=== PATIENT | female | born 1945 | race Caucasian/White ===

== ENCOUNTER 2017-03-21 13:36 | Emergency (ER) | payer MEDICARE, OTHER ==
[2017-03-21] MEDS ORDERED: ASPIRIN TABLET 325 MG TAB PO ONE (13:45)
[2017-03-21] MEDS ORDERED: NITROGLYCERIN 0.4 MG 25 EA TAB SL ONE (13:45)
--- NOTE | 2017-03-21 13:59 | ED.PDOC ---
History of Present Illness - General Chief Complaint: Chest Pain/PR Time Seen by Provider: 03/21/17 13:47 Source: patient Exam Limitations: no limitations - History of Present Illness Initial Comments: Patient presents with chest pain for 6 hours. It started infrasternal and then move to substernal. It is constant, non-radiating, no previous episodes, no associated sx. Sharp in nature. Patient has NIDDM and COPD and has chronic dyspnea which has not change. She had stent placement x one about 5 years ago but has never suffered an PR. Occasional bipedal edema. She thinks she has high cholesterol. Denies tobacco use. No modifying sx. She has a midabdominal hernia that she says is constantly painful but this has not change. No other complaints. Timing/Duration: 4-6 hours Severity: moderate Improving Factors: nothing Worsening Factors: nothing Associated Symptoms: denies symptoms Allergies/Adverse Reactions: Allergies Penicillins Allergy (Verified 05/01/15 20:48) Home Medications: Ambulatory Orders Carvedilol 3.125 mg PO BID 05/09/15 Furosemide 40 mg PO BID 05/09/15 Linaclotide [Linzess] 290 mcg PO PRN 05/09/15 Meloxicam 7.5 mg PO DAILY 05/09/15 Glipizide 10 mg PO BID 04/11/16 Isosorbide Mononitrate [Isosorbide Mononitrate ER] 30 mg PO DAILY 04/11/16 Review of Systems - Review of Systems Constitutional: States: no symptoms reported EENTM: States: no symptoms reported Respiratory: States: see HPI Cardiology: States: see HPI Gastrointestinal/Abdominal: States: see HPI Genitourinary: States: no symptoms reported Musculoskeletal: States: no symptoms reported Skin: States: no symptoms reported Neurological: States: no symptoms reported Endocrine: States: no symptoms reported Hematologic/Lymphatic: States: no symptoms reported Past Medical History (General) - Patient Medical History Hx Stroke: No Hx of COPD: Yes Hx Cardiac Disorders: Yes - CARDIAC STENT Hx Congestive Heart Failure: Yes Hx Hypertension: Yes Hx Thyroid Disease: Yes Hx Diabetes: Yes Hx Gastroesophageal Reflux: Yes Hx Cancer: No Hx Hepatitis C: No Hx MRSA: No - Vaccination History Hx Influenza Vaccination: Yes Hx Pneumococcal Vaccination: Yes - Social History Hx Tobacco Use: Yes Hx Chewing Tobacco Use: No Hx Alcohol Use: No Hx Substance Use: No Hx Substance Use Treatment: No Hx Depression: No Hx Physical Abuse: No Hx Emotional Abuse: No Hx Suspected Abuse: No - Female History Patient : No Family Medical History - Family History Father Living Status: Hx Family;Other: Cerebral aneurysm Physical Exam - Physical Exam General Appearance: Alert Ears, Nose, Throat: normal ENT inspection Neck: non-tender, full range of motion, supple Respiratory: other - distant breath sounds. Otherwise, CTAB. Cardiovascular/Chest: normal peripheral pulses, regular rate, rhythm Gastrointestinal/Abdominal: normal bowel sounds, other - TTP over midabdominal line just superior to the umbilicus. There is a palpable reducible hernia at this location. Back Exam: no CVA tenderness Extremity: normal range of motion, non-tender, normal inspection, no pedal edema Neurologic: no motor/sensory deficits Lymphatic: no adenopathy Progress - Progress Progress: 03/21/17 17:[address] changes nor T wave inversions. No new LBBB. Troponin's negative. Patient was kept for observation in the ED and her pain resolved. She was discharged symptom free. Laboratory Tests 03/21/17 14:00 WBC 12.7 H RBC 4.63 Hgb 12.3 Hct 38.0 MCV 82.1 MCH 26.6 L MCHC 32.3 L RDW 17.5 H Plt Count 256 MPV 8.5 Absolute Neuts (auto) 9.20 H Absolute Lymphs (auto) 2.50 Absolute Monos (auto) 0.50 Absolute Eos (auto) 0.40 Absolute Basos (auto) 0.10 Neutrophils % 72.7 Lymphocytes % 19.8 L Monocytes % 3.6 Eosinophils % 2.9 Basophils % 1.0 PT 12.6 H INR 1.120 PTT (SP) 39.5 H Sodium 139 Potassium 3.2 L Chloride 99 L Carbon Dioxide 32 H Anion Gap 11.2 L BUN 16 Creatinine 0.64 BUN/Creatinine Ratio 25.0 H Random Glucose 224 H Serum Osmolality 285.7 Calcium 9.0 Magnesium 1.7 L Total Bilirubin 0.5 Direct Bilirubin 0.2 Indirect Bilirubin 0.3 AST 41 ALT 21 Alkaline Phosphatase 67 Creatine Kinase 47 CK-MB (CK-2) 0.9 CK-MB (CK-2) % Not Reportable Troponin I < 0.02 B-Natriuretic Peptide 65.1 Serum Total Protein 7.0 Albumin 3.6 Departure - Departure Clinical Impression: Chest pain Disposition: Discharge to Home or Self Care Condition: Good Departure Forms: ED Discharge - Pt. Copy, Patient Portal Self Enrollment Diet: resume usual diet Activity: increase activity as tolerated Referrals: Cezar Villasenor MD [Primary Care Provider] - 1-2 Weeks Home Medications: Ambulatory Orders Carvedilol 3.125 mg PO BID 05/09/15 Furosemide 40 mg PO BID 05/09/15 Linaclotide [Linzess] 290 mcg PO PRN 05/09/15 Meloxicam 7.5 mg PO DAILY 05/09/15 Glipizide 10 mg PO BID 04/11/16 Isosorbide Mononitrate [Isosorbide Mononitrate ER] 30 mg PO DAILY 04/11/16 Additional Instructions: Follow up with your primary doctor within the next week.
--- NOTE | 2017-03-21 14:10 | RAD ---
EXAM DESCRIPTION: Chest,1 View CLINICAL HISTORY: 71 years Female, chest discomfort, SOB COMPARISON: 12/23/2014 IMPRESSION: The heart is at the upper limits of normal in size, without failure. Moderate calcific plaque in the aortic arch. There is no airspace consolidation, pleural effusion, or pneumothorax. No acute osseous abnormality. Electronically signed by: Lewis Baker MD 03/21/2017 2:09 PM CDT
[2017-03-21 14:11] VITALS: TEMP 98
[2017-03-21 18:09] VITALS: BP 128/53; O2SAT 92
== END 2017-03-21 18:00 | disposition home or self-care (01) ==
LOC: ER 13:36
DX: R07.9 Chest pain, unspecified (principal); I11.0 Hypertensive heart disease with heart failure; I50.9 Heart failure, unspecified; J44.9 Chronic obstructive pulmonary disease, unspecified; E07.9 Disorder of thyroid, unspecified; E11.9 Type 2 diabetes mellitus without complications; K21.9 Gastro-esophageal reflux disease without esophagitis; Z98.61 Coronary angioplasty status; Z88.0 Allergy status to penicillin; Z79.899 Other long term (current) drug therapy

== ENCOUNTER → 2017-10-16 | Outpatient (CLI) | payer MEDICARE, OTHER | END | disposition home or self-care (01) | LOC: GMAB 10:25 | PROVIDERS: ATTEND Family Medicine | DX: E03.9 Hypothyroidism, unspecified (principal) ==

== ENCOUNTER 2017-11-18 12:47 | Emergency (ER) | payer MEDICARE, OTHER ==
--- NOTE | 2017-11-18 13:04 | ED.PDOC ---
History of Present Illness - General Chief Complaint: Abdominal Pain Stated Complaint: BELLY PAIN Time Seen by Provider: 11/18/17 13:03 Information Source: patient Exam Limitations: no limitations - History of Present Illness Initial Comments: Lizzy Miles 72 y/o female stated that she had sharp abdominal pain since yesterday with 2 episodes of nausea vomiting.Stated had 2 ventral hernia repair and mesh was placed but failed to correct it.Also had history of bowel obstruction in the past.No diarrhea.No vomiting while in er. Abdominal Pain Onset Location: RUQ, RLQ Pain Radiation: no radiation Quality: sharpness Timing/Duration: 24 hours Improving Factors: nothing Worsening Factors: movement Associated Symptoms: nausea/vomiting, other - see hpi Review of Systems - Review of Systems Constitutional: States: no symptoms reported EENTM: States: no symptoms reported Respiratory: States: no symptoms reported Cardiology: States: no symptoms reported Gastrointestinal/Abdominal: States: see HPI Genitourinary: States: no symptoms reported Musculoskeletal: States: no symptoms reported Skin: States: no symptoms reported Neurological: States: no symptoms reported All other Systems: Reviewed and Negative, No Change from Baseline Past Medical History (General) - Patient Medical History Hx Stroke: No Hx of COPD: Yes Hx Cardiac Disorders: Yes Hx Congestive Heart Failure: Yes Hx Hypertension: Yes Hx Thyroid Disease: Yes Hx Diabetes: Yes Hx Gastroesophageal Reflux: Yes Hx Cancer: No Hx Hepatitis C: No Hx MRSA: No Surgical History: other - ventral hernia repair,hysterectomy,cardiac stents - Vaccination History Hx Tetanus, Diphtheria Vaccination: No Hx Influenza Vaccination: No Hx Pneumococcal Vaccination: No - Social History Hx Tobacco Use: No Hx Chewing Tobacco Use: No Hx Alcohol Use: No Hx Substance Use: No Hx Substance Use Treatment: No Hx Depression: No Feels Threatened In Home Enviroment: No Feels Threatened In a Relationship: No Hx Physical Abuse: No Hx Emotional Abuse: No Hx Suspected Abuse: No - Activities of Daily Living Grooming Ability: Independent Eating (Feeding) Ability: Independent Toileting Ability: Independent - Female History Patient is a Female of Child Bearing Age (10 -59 yrs old): No Patient : No - Triage Comment ED Triage Comment: PT IS HOLDING ABD AND POINTS EPIGASTRIC AREA FOR SOURCE OF PAIN Family Medical History - Family History Father Living Status: Hx Family Stroke: Yes - mom Hx Family Diabetes: Yes - mom Hx Family;Other: Cerebral aneurysm-dad Physical Exam - Physical Exam General Appearance: Alert, Anxious, No apparent distress Eyes, Ears, Nose, Throat Exam: normal ENT inspection Neck: non-tender, full range of motion, supple Respiratory: chest non-tender, lungs clear, normal breath sounds Cardiovascular/Chest: normal peripheral pulses, regular rate, rhythm, no murmur Peripheral Pulses: No deficit Gastrointestinal/Abdominal: normal bowel sounds, soft, tenderness - right side of abdomen with bulging and tenderness, other - bese Back Exam: normal inspection, no CVA tenderness Extremity: pedal edema - 1+ pedal edema Progress - Progress Progress: 11/18/17 13:38 Last Vital Signs Temp 97.8 F 11/18/17 12:54 Pulse 85 11/18/17 12:54 Resp 18 11/18/17 12:54 BP 172/84 11/18/17 12:54 Pulse Ox 94 L 11/18/17 12:54 11/18/17 13:39 She was placed in Trendelenburg position then herniated bowel gradually reduced and abdominal binder was placed.Had rlief of symptoms afterwards - Results/Orders Results/Orders: Laboratory Tests 11/18/17 11/18/17 13:23 13:23 WBC 12.2 H RBC 5.28 Hgb 13.8 Hct 43.0 MCV 81.4 MCH 26.1 L MCHC 32.0 L RDW 18.8 H Plt Count 281 MPV 8.1 Absolute Neuts (auto) 9.50 H Absolute Lymphs (auto) 2.00 Absolute Monos (auto) 0.40 Absolute Eos (auto) 0.20 Absolute Basos (auto) 0.10 Neutrophils % 78.1 H Lymphocytes % 16.3 L Monocytes % 3.3 Eosinophils % 1.6 Basophils % 0.7 Sodium 141 Potassium 3.8 Chloride 104 Carbon Dioxide 25 Anion Gap 15.8 BUN 16 Creatinine 0.85 BUN/Creatinine Ratio 18.8 Random Glucose 207 H Serum Osmolality 288.5 Calcium 8.9 Total Bilirubin 0.8 AST 33 ALT 21 Alkaline Phosphatase 69 Serum Total Protein 8.0 Albumin 3.9 Globulin 4.1 H Albumin/Globulin Ratio 1.0 L - EKG/XRAY/CT CT Ordered: Yes - abdomen-incarcerated ventral hernia Departure - Departure Clinical Impression: Recurrent ventral hernia with incarceration Time of Disposition: 14:44 Disposition: Discharge to Home or Self Care Condition: Fair Departure Forms: ED Discharge - Pt. Copy, Patient Portal Self Enrollment Instructions: Ventral Hernia, DI for Ventral Hernia Diet: other - smal frequent meals Referrals: Cezar Villasenor MD [Primary Care Provider] - 1-2 Weeks Home Medications: Ambulatory Orders Carvedilol 3.125 mg PO BID 05/09/15 Furosemide 40 mg PO BID 05/09/15 Linaclotide [Linzess] 290 mcg PO PRN 05/09/15 Meloxicam 7.5 mg PO DAILY 05/09/15 Glipizide 10 mg PO BID 04/11/16 Isosorbide Mononitrate [Isosorbide Mononitrate ER] 30 mg PO DAILY 04/11/16 Additional Instructions: Need to wear abdominal binder daily;Stool softener everyday
[2017-11-18 13:13] VITALS: TEMP 97.8
[2017-11-18 14:18] VITALS: O2SAT 95
--- NOTE | 2017-11-18 14:21 | CT ---
Procedure: CT ABDOMEN PELVIS WITHOUT IV CONTRAST Exam Date: 11/18/2017 1:21 PM COMBER TENDER Ordering Provider: Ever Archer Clinical Indication: pain/hernia r/o SBO Comparison: None TECHNIQUE: CT of the abdomen and pelvis WITHOUT intravenous contrast. The abdomen and pelvis were scanned utilizing a multidetector helical scanner from the diaphragm to the lesser trochanter. Coronal and sagittal reformations were obtained. This exam was performed according to our departmental dose-optimization program which includes automated exposure control, adjustment of the mA and/or kV according to patient size and/or use of iterative reconstruction technique. DISCUSSION: ABSENCE OF INTRAVENOUS CONTRAST DECREASES SENSITIVITY FOR DETECTION OF FOCAL LESIONS AND VASCULAR PATHOLOGY. LOWER THORAX: Normal. HEPATOBILIARY: There is evidence of cholelithiasis. The gallbladder is distended. No focal hepatic lesion. SPLEEN: No splenomegaly. PANCREAS: No focal masses or ductal dilatation. ADRENALS: No adrenal nodules. KIDNEYS/URETERS: No hydronephrosis, stones, or solid mass lesions. PELVIC ORGANS/BLADDER: Unremarkable. PERITONEUM / RETROPERITONEUM: No free air or fluid. LYMPH NODES: No lymphadenopathy. VESSELS: Vascular calcifications are seen in the abdominal aorta and iliac vessels. GI TRACT: Stomach and small bowel are unremarkable. There is extensive descending and sigmoid diverticulosis. No evidence of diverticulitis. BONES AND SOFT TISSUES: No acute abnormality. There is a ventral abdominal hernia with the hernia neck measuring approximately 4.9 cm. The hernia sac measures approximately 15.5 x 6.3 cm and contains numerous incarcerated loops of small bowel. There is no evidence of bowel obstruction. IMPRESSION: Cholelithiasis and slightly distended appearance of the gallbladder. Large ventral abdominal hernia containing numerous loops of incarcerated small bowel. No evidence of bowel obstruction. Colonic diverticulosis without diverticulitis. Electronically signed by: Marisol Henderson MD 11/18/2017 2:20 PM COMBER TENDER
[2017-11-18 15:04] VITALS: BP 105/59
== END 2017-11-18 15:00 | disposition home or self-care (01) ==
LOC: ER 12:47
DX: K43.2 Incisional hernia without obstruction or gangrene (principal); J44.9 Chronic obstructive pulmonary disease, unspecified; I11.0 Hypertensive heart disease with heart failure; I50.9 Heart failure, unspecified; E07.9 Disorder of thyroid, unspecified; E11.9 Type 2 diabetes mellitus without complications; K21.9 Gastro-esophageal reflux disease without esophagitis

== ENCOUNTER 2018-02-14 22:04 | Emergency (ER) | payer MEDICARE, OTHER ==
[2018-02-14] MEDS ORDERED: IPRATROPIUM/ALBUTEROL 3 ML VIAL NEB ONE (22:10)
[2018-02-14] MEDS: IPRATROPIUM/ALBUTEROL 3 ML VIAL NEB ONE (22:15)
[2018-02-14 22:44] VITALS: O2SAT 94
[2018-02-14] MEDS: HYDROcodone 5MG/APAP 325MG 1 EA TAB PO ONE (22:48)
[2018-02-14] MEDS: predniSONE 20 MG TAB PO ONE (22:48)
[2018-02-14] MEDS: KETOROLAC TROMETHAMINE INJ 30 MG/ML VIAL IM ONE (22:49)
[2018-02-14] MEDS: diazePAM 2 MG TAB PO ONE (22:54)
--- NOTE | 2018-02-14 23:05 | RAD ---
EXAM: Two view chest. INDICATION: Wheezing. COMPARISON: Chest x-ray: 03/21/2017. FINDINGS: Cardiac silhouette: Enlarged Christy: Unremarkable. Lobar consolidation: None. Pleural effusion: None. Pneumothorax: None. Other: None. Bones: Unremarkable. Other: None. IMPRESSION: 1. No acute cardiopulmonary process. Electronically signed by: Melo Tobin MD 02/14/2018 11:04 PM CDT Workstation: [id number]
[2018-02-14 23:47] VITALS: BP 135/69
--- NOTE | 2018-02-14 23:48 | ED.PDOC ---
History of Present Illness - General Chief Complaint: Back Pain or Injury Stated Complaint: back pain and shortness of breath Time Seen by Provider: 02/14/18 22:22 Source: patient Exam Limitations: no limitations - History of Present Illness Initial Comments: The patient is a 72-year-old female presenting to the emergency room secondary to bilateral upper back discomfort that started approximately 4 days ago. No real trauma. She has been having a flare of her COPD but has not been doing very mini nebulizer treatments. No fevers. No oxygen dependence. No visible trauma on the back. The patient has diffuse discomfort palpation bilaterally extending from approximately T3 all the way down to T10. Muscle spasm is apparent. The patient has a mild to moderate increased work of breathing. She has diffuse scattered wheezes. Decreased air movement as well. Timing/Duration: unsure Severity: moderate Improving Factors: nothing Worsening Factors: nothing Associated Symptoms: denies symptoms Allergies/Adverse Reactions: Allergies NO KNOWN ALLERGY Allergy (Verified 11/18/17 13:04) Home Medications: Ambulatory Orders Carvedilol 3.125 mg PO BID 05/09/15 Furosemide 40 mg PO BID 05/09/15 Linaclotide [Linzess] 290 mcg PO PRN 05/09/15 Meloxicam 7.5 mg PO DAILY 05/09/15 Glipizide 10 mg PO BID 04/11/16 Isosorbide Mononitrate [Isosorbide Mononitrate ER] 30 mg PO DAILY 04/11/16 Tizanidine HCl [Zanaflex] 2 mg PO Q6HR PRN #30 cap 02/14/18 predniSONE [Prednisone] 20 mg PO DAILY #3 tab 02/14/18 Review of Systems - Review of Systems Constitutional: States: no symptoms reported EENTM: States: no symptoms reported Respiratory: States: short of breath - mild Cardiology: States: no symptoms reported Gastrointestinal/Abdominal: States: no symptoms reported Genitourinary: States: no symptoms reported Musculoskeletal: States: see HPI Skin: States: no symptoms reported Neurological: States: no symptoms reported Endocrine: States: no symptoms reported All other Systems: No Change from Baseline Past Medical History (General) - Patient Medical History Hx Stroke: No Hx of COPD: Yes Hx Cardiac Disorders: Yes Hx Congestive Heart Failure: Yes Hx Hypertension: Yes Hx Thyroid Disease: Yes Hx Diabetes: Yes Hx Gastroesophageal Reflux: Yes Hx Cancer: No Hx Hepatitis C: No Hx MRSA: No Surgical History: Hysterectomy, other - Vaccination History Hx Tetanus, Diphtheria Vaccination: No Hx Influenza Vaccination: No Hx Pneumococcal Vaccination: No - Social History Hx Tobacco Use: No Hx Chewing Tobacco Use: No Hx Alcohol Use: No Hx Substance Use: No Hx Substance Use Treatment: No Hx Depression: No Hx Physical Abuse: No Hx Emotional Abuse: No Hx Suspected Abuse: No - Female History Patient : No Family Medical History - Family History Father Living Status: Hx Family Stroke: Yes - mom Hx Family Diabetes: Yes - mom Hx Family;Other: Cerebral aneurysm-dad Physical Exam - Physical Exam General Appearance: Alert, No apparent distress Eye Exam: bilateral normal Ears, Nose, Throat: hearing grossly normal, normal ENT inspection Neck: full range of motion, supple Respiratory: respiratory distress, decreased breath sounds, wheezing Cardiovascular/Chest: normal peripheral pulses, regular rate, rhythm, no edema Peripheral Pulses: radial,right: 2+, radial,left: 2+ Gastrointestinal/Abdominal: non tender, soft - bese Rectal Exam: deferred Back Exam: other - see history of present illness Extremity: non-tender, normal inspection, no pedal edema, normal capillary refill Neurologic: alert, normal mood/affect, oriented x 3 Skin Exam: normal color Comments: Vital Signs - 24 hr 02/14/18 02/14/18 02/14/18 22:20 22:32 23:46 Temperature 98.6 F Pulse Rate [ 82 82 78 left] Respiratory 18 24 24 Rate Blood Pressure 148/83 135/69 [left] O2 Sat by Pulse 94 L 94 L Oximetry Progress - Progress Progress: 02/14/18 23:48 the patient is a 72-year-old female presenting to the emergency room secondary to upper back spasms for the last 3 or 4 days. This is likely related to an increased work of breathing related to her COPD asthma exacerbation. The patient does need to increase her nebulizer treatments to at least 4 times daily for the next week. Additionally the patient is going to be changed over to Zanaflex as a muscle relaxer. She will also be placed on prednisone 20 mg every other day for 3 doses. She does need to monitor her blood sugars closely. She needs to keep herself well hydrated. ER warnings were given for any significant worsening. she needs to follow up with her primary care doctor early next week. - Results/Orders Results/Orders: Laboratory Tests 02/14/18 02/14/18 22:32 22:32 WBC 12.1 H RBC 4.94 Hgb 13.2 Hct 40.5 MCV 82.1 MCH 26.7 L MCHC 32.5 L RDW 18.9 H Plt Count 241 MPV 8.3 Absolute Neuts (auto) 8.70 H Absolute Lymphs (auto) 2.60 Absolute Monos (auto) 0.40 Absolute Eos (auto) 0.30 Absolute Basos (auto) 0.00 Neutrophils % 72.5 Lymphocytes % 21.4 Monocytes % 3.2 Eosinophils % 2.5 Basophils % 0.4 Sodium 138 Potassium 3.8 Chloride 96 L Carbon Dioxide 32 H Anion Gap 13.8 BUN 13 Creatinine 0.69 BUN/Creatinine Ratio 18.8 Random Glucose 148 H Serum Osmolality 278.5 Calcium 9.3 Magnesium 1.8 Total Bilirubin 0.5 AST 26 ALT 19 Alkaline Phosphatase 82 Serum Total Protein 7.2 Albumin 3.4 Globulin 3.8 H Albumin/Globulin Ratio 0.9 L chest x-ray shows mild cardiomegaly but otherwise nopneumonia or evidence of fluid overload. No pneumothorax. No obvious mass. Departure - Departure Clinical Impression: Acute exacerbation of COPD with asthma, Paraspinal muscle spasm Disposition: Discharge to Home or Self Care Condition: Fair Departure Forms: ED Discharge - Pt. Copy, Patient Portal Self Enrollment Diet: diabetic diet Activity: increase activity as tolerated Referrals: Cezar Villasenor MD [Primary Care Provider] - 1-5 Days Prescriptions: Tizanidine HCl [Zanaflex] 2 mg PO Q6HR PRN #30 cap PRN Reason: Muscle Spasms predniSONE [Prednisone] 20 mg PO DAILY #3 tab Home Medications: Ambulatory Orders Carvedilol 3.125 mg PO BID 05/09/15 Furosemide 40 mg PO BID 05/09/15 Linaclotide [Linzess] 290 mcg PO PRN 05/09/15 Meloxicam 7.5 mg PO DAILY 05/09/15 Glipizide 10 mg PO BID 04/11/16 Isosorbide Mononitrate [Isosorbide Mononitrate ER] 30 mg PO DAILY 04/11/16 Tizanidine HCl [Zanaflex] 2 mg PO Q6HR PRN #30 cap 02/14/18 predniSONE [Prednisone] 20 mg PO DAILY #3 tab 02/14/18 Additional Instructions: the patient is a 72-year-old female presenting to the emergency room secondary to upper back spasms for the last 3 or 4 days. This is likely related to an increased work of breathing related to her COPD asthma exacerbation. The patient does need to increase her nebulizer treatments to at least 4 times daily for the next week. Additionally the patient is going to be changed over to Zanaflex as a muscle relaxer. She will also be placed on prednisone 20 mg every other day for 3 doses. She does need to monitor her blood sugars closely. She needs to keep herself well hydrated. ER warnings were given for any significant worsening. she needs to follow up with her primary care doctor early next week.
[2018-02-15 00:02] VITALS: TEMP 98.5
== END 2018-02-15 00:02 | disposition home or self-care (01) ==
LOC: ER 22:04
DX: J44.1 Chronic obstructive pulmonary disease with (acute) exacerbation (principal); M62.830 Muscle spasm of back; I11.0 Hypertensive heart disease with heart failure; I50.9 Heart failure, unspecified; E11.9 Type 2 diabetes mellitus without complications; E07.9 Disorder of thyroid, unspecified; K21.9 Gastro-esophageal reflux disease without esophagitis
CPT/HCPCS: 36415; 71046; 80053; 83735; 85025; J1885; J7512; J7620

== ENCOUNTER 2018-03-08 11:13 | Emergency (ER) | payer MEDICARE, OTHER ==
[2018-03-08 11:28] VITALS: TEMP 97.7
[2018-03-08] MEDS ORDERED: KETOROLAC TROMETHAMINE INJ 30 MG/ML VIAL IM ONE (11:40)
--- NOTE | 2018-03-08 12:06 | ED.PDOC ---
History of Present Illness - General Chief Complaint: Back Pain or Injury Stated Complaint: back pain Time Seen by Provider: 03/08/18 11:36 Source: patient, family Exam Limitations: clinical condition - History of Present Illness Initial Comments: Patient presents with an acute exacerbation of low back pain. 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 She has been getting physical therapy. She was here last week for the same and says she got Flexeril and Tylenol #3. The pain is midlumbar, constant but intermittent in intensity, sharp in nature. She thinks the Flexeril and Tylenol #3 might have worked but she is not sure. No associated symptoms. Timing/Duration: changing over time Severity: severe Improving Factors: rest Worsening Factors: movement Associated Symptoms: denies symptoms Allergies/Adverse Reactions: Allergies NO KNOWN ALLERGY Allergy (Verified 11/18/17 13:04) Home Medications: Ambulatory Orders Carvedilol 3.125 mg PO BID 05/09/15 Furosemide 40 mg PO BID 05/09/15 Meloxicam 7.5 mg PO DAILY 05/09/15 Isosorbide Mononitrate [Isosorbide Mononitrate ER] 30 mg PO DAILY 04/11/16 predniSONE [Prednisone] 20 mg PO DAILY #3 tab 02/14/18 Acetamin W/Cod #3 Tab [Tylenol w/CODEINE #3] 1 ea PO Q4HR #20 tab 03/08/18 Aspirin [Aspirin Regimen Low Dose/] 81 mg PO DAILY 03/08/18 Cholecalciferol [Vitamin D3] 1,000 unit PO DAILY 03/08/18 Chromium-Cinnamon [Cinnamon Plus Chromium] 1 cap PO BID 03/08/18 Clopidogrel Bisulfate 75 mg PO DAILY 03/08/18 Empagliflozin [Jardiance] 25 mg PO DAILY 03/08/18 Levothyroxine Sodium 175 mcg PO DAILY 03/08/18 Lula-3 Fatty Acids [Fish Oil Lula-3 1000 mg] 1 cap PO BID 03/08/18 Potassium Gluconate 595 mg PO DAILY 03/08/18 Pravastatin Sodium 40 mg PO DAILY 03/08/18 Sitagliptin-Metformin HCl [Janumet] 1 tab PO BID 03/08/18 Review of Systems - Review of Systems Constitutional: States: no symptoms reported EENTM: States: no symptoms reported Respiratory: States: no symptoms reported Cardiology: States: no symptoms reported Gastrointestinal/Abdominal: States: no symptoms reported Genitourinary: States: no symptoms reported Musculoskeletal: States: see HPI Skin: States: no symptoms reported Neurological: States: no symptoms reported Endocrine: States: no symptoms reported Hematologic/Lymphatic: States: no symptoms reported Past Medical History (General) - Patient Medical History Hx Stroke: No Hx of COPD: Yes Hx Cardiac Disorders: Yes Hx Congestive Heart Failure: Yes Hx Hypertension: Yes Hx Thyroid Disease: Yes Hx Diabetes: Yes Hx Gastroesophageal Reflux: Yes Hx Cancer: No Hx Hepatitis C: No Hx MRSA: No - Vaccination History Hx Tetanus, Diphtheria Vaccination: No Hx Influenza Vaccination: Yes Hx Pneumococcal Vaccination: No - Social History Hx Tobacco Use: Yes Hx Chewing Tobacco Use: No Hx Alcohol Use: No Hx Substance Use: No Hx Substance Use Treatment: No Hx Depression: No Hx Physical Abuse: No Hx Emotional Abuse: No Hx Suspected Abuse: No - Female History Patient : No Family Medical History - Family History Father Living Status: Hx Family Stroke: Yes - mom Hx Family Diabetes: Yes - mom Hx Family;Other: Cerebral aneurysm-dad Physical Exam - Physical Exam General Appearance: Obvious distress Eye Exam: bilateral normal Ears, Nose, Throat: normal ENT inspection Neck: non-tender, full range of motion, supple Respiratory: chest non-tender, lungs clear, normal breath sounds Cardiovascular/Chest: normal peripheral pulses, regular rate, rhythm Gastrointestinal/Abdominal: normal bowel sounds, non tender, soft Back Exam: no vertebral tenderness, muscle spasm, other - TTP over bilateral lumbar area. Unable to test range of motion as patient is quiet animated at this time. 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 Neurological exam was unremarkable. I spoke with Dr. Fernandez at [facility] with neurosurgery and it was decided to have the patient schedule an MRI with her primary physician. Departure - Departure Clinical Impression: Anterior wedge fracture of vertebra Disposition: Discharge to Home or Self Care Condition: Good Departure Forms: ED Discharge - Pt. Copy, Patient Portal Self Enrollment Instructions: DI for Low Back Pain Diet: resume usual diet Activity: as per physical therapy Referrals: Cezar Villasenor MD [Primary Care Provider] - 1-2 Weeks Prescriptions: Acetamin W/Cod #3 Tab [Tylenol w/CODEINE #3] 1 ea PO Q4HR #20 tab Home Medications: Ambulatory Orders Carvedilol 3.125 mg PO BID 05/09/15 Furosemide 40 mg PO BID 05/09/15 Meloxicam 7.5 mg PO DAILY 05/09/15 Isosorbide Mononitrate [Isosorbide Mononitrate ER] 30 mg PO DAILY 04/11/16 predniSONE [Prednisone] 20 mg PO DAILY #3 tab 02/14/18 Acetamin W/Cod #3 Tab [Tylenol w/CODEINE #3] 1 ea PO Q4HR #20 tab 03/08/18 Aspirin [Aspirin Regimen Low Dose/] 81 mg PO DAILY 03/08/18 Cholecalciferol [Vitamin D3] 1,000 unit PO DAILY 03/08/18 Chromium-Cinnamon [Cinnamon Plus Chromium] 1 cap PO BID 03/08/18 Clopidogrel Bisulfate 75 mg PO DAILY 03/08/18 Empagliflozin [Jardiance] 25 mg PO DAILY 03/08/18 Levothyroxine Sodium 175 mcg PO DAILY 03/08/18 Lula-3 Fatty Acids [Fish Oil Lula-3 1000 mg] 1 cap PO BID 03/08/18 Potassium Gluconate 595 mg PO DAILY 03/08/18 Pravastatin Sodium 40 mg PO DAILY 03/08/18 Sitagliptin-Metformin HCl [Janumet] 1 tab PO BID 03/08/18 Additional Instructions: Call your primary care physician on Sunday to schedule an MRI. Take medications as prescribed.
--- NOTE | 2018-03-08 13:56 | CT ---
EXAM DESCRIPTION: Lumbar Spine CLINICAL HISTORY: low back pain COMPARISON: None TECHNIQUE: Non contrast transaxial CT images of the lumbar spine are obtained with coronal and sagittal reconstructed images. This exam was performed according to our departmental dose-optimization program, which includes automated exposure control, adjustment of the mA and/or kV according to patient size and/or use of iterative reconstruction technique . FINDINGS: GENERAL Osseous structures are diffusely osteopenic. There is mild anterior wedging of the superior plate of T11. No obvious sharp fracture margins are appreciated. Vacuum disc and moderate disc space narrowing at T10-T12 is seen. Moderate facet arthropathy at T10-11 is noted. No spinal canal stenosis. There is moderate to severe foraminal encroachment at T10-11. Visualized intra-abdominal retroperitoneal structures show mild scattered calcified plaque. There are less than 1 cm retroperitoneal lymph nodes are nonspecific. The sacrum is unremarkable. Degenerative changes of the SI joints are seen with air in the SI joints. L1-2 Mild diffuse disc space narrowing no spinal canal stenosis or significant foraminal encroachment. L2-3 Mild disc space narrowing without significant spinal canal stenosis or foraminal encroachment. L3-4 No significant findings. L4-5 Moderate bilateral facet hypertrophic and degenerative changes with ligamentum flavum thickening contributes to at least mild spinal canal stenosis. Thecal sac measures 5 mm AP centrally. Air in the facet joints is seen bilaterally. There is at least moderate left greater than right foraminal encroachment. L5-S1 Severe right and mild left facet hypertrophic and degenerative changes are seen with air in the facet joints. Moderate right and mild left foraminal encroachment is seen. IMPRESSION: Age-indeterminate anterior wedge compression fracture deformity of T11. Consider further evaluation with MRI or bone scan imaging. Mild to severe facet arthropathy of the lower lumbar spine is seen most significant at L4-5 and on the right at L5-S1. There is multifactorial at least mild spinal canal stenosis at L4-5. There is at least moderate foraminal encroachment left greater than right at L4-5 and on the right at L5-S1. Electronically signed by: Matthew Voss MD 03/08/2018 1:54 PM CDT
[2018-03-08 15:17] VITALS: BP 114/71; O2SAT 95
== END 2018-03-08 15:10 | disposition home or self-care (01) ==
LOC: ER 11:13
DX: S22.080A Wedge compression fracture of T11-T12 vertebra, initial encounter for closed fracture (principal); J44.9 Chronic obstructive pulmonary disease, unspecified; I11.0 Hypertensive heart disease with heart failure; I50.9 Heart failure, unspecified; E07.9 Disorder of thyroid, unspecified; E11.9 Type 2 diabetes mellitus without complications; K21.9 Gastro-esophageal reflux disease without esophagitis; Z87.891 Personal history of nicotine dependence; Z79.02 Long term (current) use of antithrombotics/antiplatelets; Z79.82 Long term (current) use of aspirin; X58.XXXA Exposure to other specified factors, initial encounter; Y92.9 Unspecified place or not applicable
CPT/HCPCS: 72131; J1885

== ENCOUNTER → 2018-03-13 | Outpatient (CLI) | payer MEDICARE, OTHER ==
--- NOTE | 2018-03-13 16:18 | MRI ---
EXAM DESCRIPTION: Lumbar Spine w/o Contrast MRI. CLINICAL HISTORY: RADICULOPATHY. Abnormalities at L4-5 and L5-S1. COMPARISON: CT scan of the lumbar spine 03/08/2018. TECHNIQUE: Multiplanar, multiple standard sequences, non contrast MRI, lumbar spine. FINDINGS: L5-S1: Disc desiccation with posterior minimal broad-based disc bulge abutting the thecal sac. Moderate canal narrowing. Effusion in the right facet joint with large bone density projecting into the canal from the facet joint impressing on the lateral thecal sac and abutting the descending right S1 nerve above the lateral recess. Also encroaching on the right foramen with stenosis abutting the exiting right L5 nerve. Minimal arthrosis left facet and minimal to moderate left foraminal narrowing. L4-5: Disc desiccation with 5 mm bulge into the left canal and base of the left foramen which is moderately narrowed. Left facet arthrosis and mild flavum ligament hypertrophy. Mild to moderate canal narrowing more on the left with mild right foraminal narrowing. L3-4: Disc desiccation and disc space preserved. Canal and foramina are patent. Minimal flavum ligament hypertrophy. Facets negative. L2-3: Normal signal in the disc and disc space preserved. Minimal ligament hypertrophy with normal facets. Canal and foramina are patent. L1-2: Disc desiccation and anterior bulging and minimal anterior endplate ridging. Posterior elements unremarkable. Canal and foramina are patent. Conus terminates at L1. T12-L1: Disc desiccation and anterior focal circumscribed right T1-T2 signal in the superior L1 endplate. Slightly 2 x 1.5 cm smooth walled cyst is accompanying the descending left S1 nerve into the left subarticular recess. Bilateral foramina are patent. No scoliosis. Paravertebral soft tissues showing muscle atrophy.. Otherwise normal marrow signal in the remaining vertebral bodies and the posterior elements. Vertebral bodies are not compressed at any level. IMPRESSION: 1. Large bone spur on the right L5-S1 facet projecting into the canal with mass effect on the right lateral thecal sac and abutting the descending right S1 nerve above the subarticular recesses. Also abutting the right L5 nerve in the foramen. Correlate for radiculopathy. 2. Bilateral facet arthrosis at L4-5 more severe on the left narrowing the foramen with adjacent soft tissue inflammatory changes. 3. Probable perineural cyst partially associated with descending left S1 nerve cecal sac into the left subarticular recess. Consider follow-up scan with gadolinium IV contrast to confirm this as a cyst. Electronically signed by: Quirino Guardado MD 03/13/2018 4:17 PM CDT
--- NOTE | 2018-03-13 16:40 | MRI ---
EXAM DESCRIPTION: Thoracic Spine w/o Contrast: Magnetic Resonance Imaging. CLINICAL HISTORY: RADICULOPATHY COMPARISON: MRI scan of the lumbar spine on the same visit. TECHNIQUE: Multiplanar, multiple standard sequences, non contrast MRI, thoracic spine. FINDINGS: Loss of height approximately 50% in the central T8 vertebral body and approximately 30% anterior. Anterior superior endplate is fragmented and displaced anteriorly. Approximately 2 mm retropulsion of the mid posterior vertebral body which is abutting the cord. Marrow edema in the inferior half of the vertebral body which is extending into the base of the right pedicle and also into the entire left pedicle. Moderate canal narrowing but no cord impingement displacement or compression. No stenosis in the bilateral T7-8 foramina or bilateral T8-9 and foramina. Posterior well-circumscribed T1 and T2 signal in the T7 vertebral body not involving the pedicles. Minimal desiccation of the T6-T7 disc but no herniation. No canal stenosis. Anterior moderate endplate reactive changes at T9-T10 with disc space narrowing. No significant posterior bulging. Canal and foramina are patent. T10-T11 disc desiccation with anterior bulging and endplate ridging. Moderate endplate reactive changes. No canal or foraminal stenosis. T11-12 disc desiccation anterior disc space loss anterior bulging and spurs. Anterior endplate Modic type II endplate reactive changes. Small posterior endplate spurs but no significant disc bulging. No canal or foraminal stenosis. Remaining discs with normal signal in disc space preserved. Canal and foramina are patent. No cord compression or cord edema. Paraspinal muscle atrophy. Minimal paravertebral soft tissue swelling at T9 more on the right than the left.. Otherwise normal marrow signal in the vertebral bodies and the posterior elements. No other levels of vertebral body compression. IMPRESSION: 1. Approximately 50% compression of the central T8 vertebral body more than the anterior vertebral body. Anterior superior endplate is displaced anteriorly. 2 mm retropulsion of the posterior mid vertebral body abutting the cord but no cord compression or canal stenosis. Marrow edema extends into the bilateral pedicles more left than right. T7-T8 and T8-T9 discs are not herniated and foramina are not stenotic. 2. Disc desiccation and spondylosis from T9-T10 to T11-T12. 3. Large hemangioma in the posterior T7 vertebral body. Minimal desiccation of the T6-T7 disc. Electronically signed by: Quirino Guardado MD 03/13/2018 4:38 PM CDT
== END ==
LOC: MRI 10:15
PROVIDERS: ATTEND Family Medicine
DX: M54.16 Radiculopathy, lumbar region (principal); M54.14 Radiculopathy, thoracic region; D18.09 Hemangioma of other sites; M46.07 Spinal enthesopathy, lumbosacral region

== ENCOUNTER 2018-03-25 03:38 | Emergency (ER) | payer MEDICARE, OTHER ==
--- NOTE | 2018-03-25 04:15 | ED.PDOC ---
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 Allergies/Adverse Reactions: Allergies NO KNOWN ALLERGY Allergy (Verified 03/25/18 04:03) Home Medications: Ambulatory Orders Carvedilol 3.125 mg PO BID 05/09/15 Furosemide 40 mg PO BID 05/09/15 Meloxicam 7.5 mg PO DAILY 05/09/15 Isosorbide Mononitrate [Isosorbide Mononitrate ER] 30 mg PO DAILY 04/11/16 Acetamin W/Cod #3 Tab [Tylenol w/CODEINE #3] 1 ea PO Q4HR #20 tab 03/08/18 Aspirin [Aspirin Regimen Low Dose/] 81 mg PO DAILY 03/08/18 Empagliflozin [Jardiance] 25 mg PO DAILY 03/08/18 Levothyroxine Sodium 175 mcg PO DAILY 03/08/18 Potassium Gluconate 595 mg PO DAILY 03/08/18 Pravastatin Sodium 40 mg PO DAILY 03/08/18 Sitagliptin-Metformin HCl [Janumet] 1 tab PO BID 03/08/18 Tramadol HCl [Ultram] 50 mg PO Q6H PRN #30 tab 03/25/18 Review of Systems - Review of Systems Constitutional: States: no symptoms reported EENTM: States: no symptoms reported Respiratory: States: no symptoms reported Cardiology: States: no symptoms reported Gastrointestinal/Abdominal: States: no symptoms reported Genitourinary: States: no symptoms reported Musculoskeletal: States: no symptoms reported Skin: States: no symptoms reported Neurological: States: see HPI Endocrine: States: no symptoms reported Hematologic/Lymphatic: States: no symptoms reported Past Medical History (General) - Patient Medical History Hx Stroke: No Hx of COPD: Yes Hx Cardiac Disorders: Yes - high cholesterol Hx Congestive Heart Failure: Yes Hx Hypertension: Yes Hx Thyroid Disease: Yes Hx Diabetes: Yes Hx Gastroesophageal Reflux: Yes Hx Cancer: No Hx Hepatitis C: No Hx MRSA: No Surgical History: other - Vaccination History Hx Tetanus, Diphtheria Vaccination: No Hx Influenza Vaccination: Yes - 2016 Hx Pneumococcal Vaccination: No - Social History Hx Tobacco Use: Yes - Quit 2007 Hx Chewing Tobacco Use: No Hx Alcohol Use: No Hx Substance Use: No Hx Substance Use Treatment: No Hx Depression: No Hx Physical Abuse: No Hx Emotional Abuse: No Hx Suspected Abuse: No - Female History Patient : No Family Medical History - Family History Father Living Status: Hx Family Stroke: Yes - mom Hx Family Diabetes: Yes - mom Hx Family;Other: Cerebral aneurysm-dad Physical Exam - Physical Exam General Appearance: Alert, Obvious distress Eyes, Ears, Nose, Throat Exam: PERRL/EOMI, normal ENT inspection, TMs normal Neck Exam: non-tender, full range of motion, normal alignment, normal inspection Cardiovascular/Respiratory: regular rate, rhythm, no M/R/G, normal peripheral pulses, normal breath sounds Peripheral Pulses: radial,right: 2+, radial,left: 2+ Gastrointestinal/Abdominal: normal bowel sounds, non tender, soft, other - reducuble ventral hernia on the right side Back Exam: vertebral tenderness - lower back 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 Copy, Patient Portal Self Enrollment Instructions: DI for Low Back Pain Diet: resume usual diet Activity: as per physical therapy Referrals: Cezar Villasenor MD [Primary Care Provider] - 1-2 Weeks Prescriptions: Tramadol HCl [Ultram] 50 mg PO Q6H PRN #30 tab PRN Reason: Pain Home Medications: Ambulatory Orders Carvedilol 3.125 mg PO BID 05/09/15 Furosemide 40 mg PO BID 05/09/15 Meloxicam 7.5 mg PO DAILY 05/09/15 Isosorbide Mononitrate [Isosorbide Mononitrate ER] 30 mg PO DAILY 04/11/16 Acetamin W/Cod #3 Tab [Tylenol w/CODEINE #3] 1 ea PO Q4HR #20 tab 03/08/18 Aspirin [Aspirin Regimen Low Dose/] 81 mg PO DAILY 03/08/18 Empagliflozin [Jardiance] 25 mg PO DAILY 03/08/18 Levothyroxine Sodium 175 mcg PO DAILY 03/08/18 Potassium Gluconate 595 mg PO DAILY 03/08/18 Pravastatin Sodium 40 mg PO DAILY 03/08/18 Sitagliptin-Metformin HCl [Janumet] 1 tab PO BID 03/08/18 Tramadol HCl [Ultram] 50 mg PO Q6H PRN #30 tab 03/25/18
[2018-03-25] MEDS ORDERED: fentaNYL CITRATE INJ 50 MCG/ML AMP IV ONE (04:19)
[2018-03-25] MEDS ORDERED: fentaNYL CITRATE INJ 50 MCG/ML AMP IM ONE (04:24)
--- NOTE | 2018-03-25 04:50 | CT ---
EXAM DESCRIPTION: Lumbar Spine CLINICAL HISTORY: severe back pain COMPARISON: 03/08/2018 TECHNIQUE: Axial CT of the lumbar spine obtained without contrast. FINDINGS: Alignment of the lumbar spine is maintained without evidence of subluxation. Interval development of compression fracture of the L4 vertebral body with approximately 10% loss of posterior vertebral body height. No other areas concerning for acute fracture identified on this study. Osteopenia. Prevertebral soft tissues are unremarkable. Multilevel endplate spondylosis and facet arthropathy. Degenerative disc change at T10/11 and T11/12. No definite osseous central canal nor neural foraminal narrowing. Aortoiliac atherosclerosis. DLP: 2154.11 mGy-cm IMPRESSION: 1. Acute compression fracture of the L4 vertebral body with approximately 10% loss of posterior vertebral body height. This exam was performed according to our departmental dose-optimization program, which includes automated exposure control, adjustment of the mA and/or kV according to patient size and/or use of iterative reconstruction technique. Electronically signed by: Dean Justin 03/25/2018 4:48 AM CDT
[2018-03-25 05:05] VITALS: BP 123/74; TEMP 97.2; O2SAT 98
== END 2018-03-25 05:30 | disposition home or self-care (01) ==
LOC: ER 03:38
DX: M51.36 Other intervertebral disc degeneration, lumbar region (principal); S32.049A Unspecified fracture of fourth lumbar vertebra, initial encounter for closed fracture; I11.0 Hypertensive heart disease with heart failure; I50.9 Heart failure, unspecified; E78.00 Pure hypercholesterolemia, unspecified; E11.9 Type 2 diabetes mellitus without complications; K21.9 Gastro-esophageal reflux disease without esophagitis; Z87.891 Personal history of nicotine dependence; Z79.82 Long term (current) use of aspirin; Z79.4 Long term (current) use of insulin; X50.1XXA Overexertion from prolonged static or awkward postures, initial encounter; Y92.9 Unspecified place or not applicable
CPT/HCPCS: 72131; J3010

== ENCOUNTER 2018-05-21 16:08 | Emergency (ER) | payer MEDICARE, OTHER ==
[2018-05-21] MEDS ORDERED: HYDROcodone 7.5MG/APAP 325MG 1 EA TAB PO ONE (16:12)
[2018-05-21] MEDS ORDERED: KETOROLAC TROMETHAMINE INJ 30 MG/ML VIAL IM ONE (16:12)
[2018-05-21] MEDS ORDERED: diazePAM 2 MG TAB PO ONE (16:12)
[2018-05-21 16:21] VITALS: TEMP 98.3; O2SAT 94
--- NOTE | 2018-05-21 16:47 | RAD ---
EXAM DESCRIPTION: Thoracic Spine,AP Lateral CLINICAL HISTORY: increased pain at thoracic kyphoplasty site COMPARISON: Thoracic magnetic resonance imaging dated 13 Mar 2018 TECHNIQUE: AP and lateral FINDINGS: A T8 vertebroplasty is observed. The thoracic spine is osteopenic. The pedicles appear intact. No new compression injury is detected. IMPRESSION: T8 vertebral body augmentation. The exam is otherwise unremarkable. Electronically signed by: Zack Rhodes MD 05/21/2018 4:45 PM CDT
--- NOTE | 2018-05-21 17:46 | ED.PDOC ---
History of Present Illness - General Chief Complaint: Back Pain or Injury Stated Complaint: back pain Time Seen by Provider: 05/21/18 16:12 Source: patient - History of Present Illness Initial Comments: the patient is a 73-year-old female presenting to the emergency room secondary to mid back pain after kyphoplasty site. The patient had kyphoplasty done approximately 5 days ago. 2 days ago she was straining on the toilet when she started having back pain in the area again. She has had pain in that area since. She's been having some muscle spasms. No neurological changes. No new weakness. No incontinence. There is no evidence of any significant inflammation or infection at the procedure site. She has not fallen or hurt it in anyway that she knows of. No fevers. She does obviously have osteoporosis. Timing/Duration: unsure Severity: severe Improving Factors: immobilization Worsening Factors: movement Associated Symptoms: denies symptoms Allergies/Adverse Reactions: Allergies NO KNOWN ALLERGY Allergy (Verified 03/25/18 04:03) Home Medications: Ambulatory Orders Carvedilol 3.125 mg PO BID 05/09/15 Furosemide 40 mg PO BID 05/09/15 Meloxicam 7.5 mg PO DAILY 05/09/15 Isosorbide Mononitrate [Isosorbide Mononitrate ER] 30 mg PO DAILY 04/11/16 Acetamin W/Cod #3 Tab [Tylenol w/CODEINE #3] 1 ea PO Q4HR #20 tab 03/08/18 Aspirin [Aspirin Regimen Low Dose/] 81 mg PO DAILY 03/08/18 Empagliflozin [Jardiance] 25 mg PO DAILY 03/08/18 Levothyroxine Sodium 175 mcg PO DAILY 03/08/18 Potassium Gluconate 595 mg PO DAILY 03/08/18 Pravastatin Sodium 40 mg PO DAILY 03/08/18 Sitagliptin-Metformin HCl [Janumet] 1 tab PO BID 03/08/18 Tramadol HCl [Ultram] 50 mg PO Q6H PRN #30 tab 03/25/18 Hvqhyzbotssdt-Wvvu-Xkkugcdszj [Fioricet] 1 ea PO Q8H PRN #21 tab 05/21/18 Cyclobenzaprine HCl [Flexeril] 5 mg PO TID PRN #30 tab 05/21/18 Review of Systems - Review of Systems Constitutional: States: no symptoms reported EENTM: States: no symptoms reported Respiratory: States: no symptoms reported Cardiology: States: no symptoms reported Gastrointestinal/Abdominal: States: no symptoms reported Genitourinary: States: no symptoms reported Musculoskeletal: States: see HPI Skin: States: no symptoms reported Neurological: States: anxiety Endocrine: States: no symptoms reported All other Systems: No Change from Baseline Past Medical History (General) - Patient Medical History Hx Stroke: No Hx of COPD: Yes Hx Cardiac Disorders: Yes - high cholesterol Hx Congestive Heart Failure: Yes Hx Hypertension: Yes Hx Thyroid Disease: Yes Hx Diabetes: Yes Hx Gastroesophageal Reflux: Yes Hx Cancer: No Hx Hepatitis C: No Hx MRSA: No - Vaccination History Hx Tetanus, Diphtheria Vaccination: No Hx Influenza Vaccination: Yes Hx Pneumococcal Vaccination: No - Social History Hx Tobacco Use: Yes Hx Chewing Tobacco Use: No Hx Alcohol Use: No Hx Substance Use: No Hx Substance Use Treatment: No Hx Depression: No Hx Physical Abuse: No Hx Emotional Abuse: No Hx Suspected Abuse: No - Female History Patient : No Family Medical History - Family History Father Living Status: Hx Family Stroke: Yes - mom Hx Family Diabetes: Yes - mom Hx Family;Other: Cerebral aneurysm-dad Physical Exam - Physical Exam General Appearance: Alert, Obvious distress Eye Exam: bilateral normal Ears, Nose, Throat: hearing grossly normal, normal pharynx Neck: full range of motion Respiratory: lungs clear, normal breath sounds, no respiratory distress, no accessory muscle use Cardiovascular/Chest: regular rate, rhythm, no edema Peripheral Pulses: radial,right: 2+, radial,left: 2+ Gastrointestinal/Abdominal: non tender - morbidly obese, soft Rectal Exam: deferred Back Exam: other - see history of present illness. Extremity: non-tender, no calf tenderness, normal capillary refill Skin Exam: normal color Comments: Vital Signs - 24 hr 05/21/18 16:15 Temperature 98.3 F Pulse Rate [ 86 Right Brachial] Respiratory 20 Rate Blood Pressure 164/95 [Right Arm] O2 Sat by Pulse 94 L Oximetry Progress - Progress Progress: 05/21/18 17:47 the patient is a 73-year-old female presenting to the emergency room secondary to pain at her kyphoplasty site that she had done last week. The patient is feeling better after a dose of Toradol, hydrocodone and Valium. She will be discharged with prescriptions for Flexeril and Fioricet for as needed use. She needs to follow-up with her primary care doctor later this week. She needs to keep herself well-hydrated. She needs to control her blood sugars. ER warnings were given. X-ray of the thoracic spine shows the repair and no obvious new pathology. Departure - Departure Clinical Impression: Paraspinal muscle spasm Disposition: Discharge to Home or Self Care Condition: Fair Departure Forms: ED Discharge - Pt. Copy, Patient Portal Self Enrollment Diet: diabetic diet Activity: increase activity as tolerated Referrals: Cezar Villasenor MD [Primary Care Provider] - 1-5 Days Prescriptions: Qqfsiknprpdbw-Fdlh-Ilufoehasq [Fioricet] 1 ea PO Q8H PRN #21 tab PRN Reason: Pain Cyclobenzaprine HCl [Flexeril] 5 mg PO TID PRN #30 tab PRN Reason: Muscle Spasms Home Medications: Ambulatory Orders Carvedilol 3.125 mg PO BID 05/09/15 Furosemide 40 mg PO BID 05/09/15 Meloxicam 7.5 mg PO DAILY 05/09/15 Isosorbide Mononitrate [Isosorbide Mononitrate ER] 30 mg PO DAILY 04/11/16 Acetamin W/Cod #3 Tab [Tylenol w/CODEINE #3] 1 ea PO Q4HR #20 tab 03/08/18 Aspirin [Aspirin Regimen Low Dose/] 81 mg PO DAILY 03/08/18 Empagliflozin [Jardiance] 25 mg PO DAILY 03/08/18 Levothyroxine Sodium 175 mcg PO DAILY 03/08/18 Potassium Gluconate 595 mg PO DAILY 03/08/18 Pravastatin Sodium 40 mg PO DAILY 03/08/18 Sitagliptin-Metformin HCl [Janumet] 1 tab PO BID 03/08/18 Tramadol HCl [Ultram] 50 mg PO Q6H PRN #30 tab 03/25/18 Sylkwlobvcdyd-Cefn-Mdttcviggg [Fioricet] 1 ea PO Q8H PRN #21 tab 05/21/18 Cyclobenzaprine HCl [Flexeril] 5 mg PO TID PRN #30 tab 05/21/18 Additional Instructions: the patient is a 73-year-old female presenting to the emergency room secondary to pain at her kyphoplasty site that she had done last week. The patient is feeling better after a dose of Toradol, hydrocodone and Valium. She will be discharged with prescriptions for Flexeril and Fioricet for as needed use. She needs to follow-up with her primary care doctor later this week. She needs to keep herself well-hydrated. She needs to control her blood sugars. ER warnings were given. X-ray of the thoracic spine shows the repair and no obvious new pathology.
[2018-05-21 18:04] VITALS: BP 132/69
== END 2018-05-21 18:10 | disposition home or self-care (01) ==
LOC: ER 16:08
DX: M62.830 Muscle spasm of back (principal); J44.9 Chronic obstructive pulmonary disease, unspecified; E78.00 Pure hypercholesterolemia, unspecified; I11.0 Hypertensive heart disease with heart failure; I50.9 Heart failure, unspecified; E07.9 Disorder of thyroid, unspecified; E11.9 Type 2 diabetes mellitus without complications; K21.9 Gastro-esophageal reflux disease without esophagitis; Z79.899 Other long term (current) drug therapy; Z79.82 Long term (current) use of aspirin
CPT/HCPCS: 72070; J1885

== ENCOUNTER → 2018-08-14 | Outpatient (CLI) | payer MEDICARE, OTHER | LOC: GMAE 09:31 | PROVIDERS: ATTEND Family Medicine | DX: E11.9 Type 2 diabetes mellitus without complications (principal); Z79.4 Long term (current) use of insulin; Z79.899 Other long term (current) drug therapy ==

== ENCOUNTER → 2018-08-15 | Outpatient (CLI) | payer MEDICARE, OTHER | LOC: GMAE 12:02 | PROVIDERS: ATTEND Family Medicine | DX: E11.9 Type 2 diabetes mellitus without complications (principal); Z79.4 Long term (current) use of insulin; Z79.899 Other long term (current) drug therapy ==

== ENCOUNTER → 2018-10-03 | Outpatient (CLI) | payer MEDICARE, OTHER | LOC: RESP 14:18 | PROVIDERS: ATTEND Internal Medicine | DX: J44.9 Chronic obstructive pulmonary disease, unspecified (principal); G47.33 Obstructive sleep apnea (adult) (pediatric) ==

== ENCOUNTER → 2018-10-22 | Outpatient (CLI) | payer MEDICARE, OTHER | LOC: GMAE 11:30 | PROVIDERS: ATTEND Family Medicine | DX: E03.9 Hypothyroidism, unspecified (principal) ==

== ENCOUNTER → 2019-02-18 | Outpatient (CLI) | payer MEDICARE, OTHER | LOC: NC 09:27 | PROVIDERS: ATTEND Internal Medicine Endocrinology, Diabetes & Metabolism | DX: E11.65 Type 2 diabetes mellitus with hyperglycemia (principal); E53.8 Deficiency of other specified B group vitamins; E78.5 Hyperlipidemia, unspecified; I10 Essential (primary) hypertension ==

== ENCOUNTER → 2019-03-11 | Outpatient (CLI) | payer MEDICARE, OTHER | LOC: NC 13:31 | PROVIDERS: ATTEND Family Medicine | DX: E11.40 Type 2 diabetes mellitus with diabetic neuropathy, unspecified (principal); E03.8 Other specified hypothyroidism ==

== ENCOUNTER → 2019-05-29 | Outpatient (CLI) | payer MEDICARE, OTHER ==
--- NOTE | 2019-05-30 10:51 | MRI ---
EXAM DESCRIPTION: Cervical Spine: MRI. CLINICAL HISTORY: 74 years Female RADICULOPATHY CERVICAL REGION COMPARISON: Multiple cross-sectional imaging examinations of the thoracic and lumbar spine. TECHNIQUE: Multiplanar, high-field MRI, multiple sequences, non-contrast Cervical spine. FINDINGS: C5-C6: Minimal disc desiccation with disc space preserved. Tiny anterior and posterior bulge. Mild canal narrowing. Bilateral facets are unremarkable. The lateral neural foramina are patent. Normal signal in the remaining discs with no bulging. Disc spaces preserved. Canal and neural foramina are patent. Facet joints are unremarkable. Spinal alignment slightly kyphotic.. No cord compression or cord edema. Atlantoaxial joint moderate arthrosis. Anterior canal ligament displaced posteriorly but not touching the cord. Base of the cerebellar tonsils is just above the foramen magnum. Paravertebral soft tissues showing a mass or possibly an indeterminate nodule in the inferior left thyroid lobe, or adjacent soft tissues. Approximate dimensions 2.6 x 1.8 cm.. Vertebral bodies are not compressed at any level. Normal marrow signal in the remaining vertebral bodies and the posterior elements. IMPRESSION: 1. Cervical spine slightly kyphotic which may be related to muscle spasm and pain. 2. Minimal desiccation and bulging of the C5-6 disc with mild canal narrowing but no canal or neural foraminal stenosis. Other discs are unremarkable. 3. 2.6 cm incidental thyroid nodule. Recommend thyroid US. Reference: J Am Anne Radiol. 2015 Dec;12(2): 143-50 Electronically signed by: Quirino Guardado MD 05/30/2019 10:49 AM CDT
== END ==
LOC: MRI 11:00
PROVIDERS: ATTEND Family Medicine
DX: M50.122 Cervical disc disorder at C5-C6 level with radiculopathy (principal); E04.1 Nontoxic single thyroid nodule

== ENCOUNTER → 2019-05-30 | Outpatient (CLI) | payer MEDICARE, OTHER ==
--- NOTE | 2019-05-30 13:10 | MRI ---
EXAM DESCRIPTION: Upper Extremity Joint,Right CLINICAL HISTORY: 74 years, Female, right shoulder pain, evaluate for rotator cuff pathology. COMPARISON: None TECHNIQUE: MRI of the right shoulder was performed with multiplanar multi sequence imaging without intravenous contrast. FINDINGS: Partially limited evaluation due to motion artifact. Rotator tendons: Background moderate supraspinatus and infraspinatus tendinosis. High-grade (greater than 50% tendon thickness) partial partial-thickness bursal sided tears of the supraspinatus tendon with partial tendon retraction to the level of the lateral acromion (with fluid gap of approximately 1.4 cm (mediolateral dimension)). Partial-thickness bursal and articular surface tears of the infraspinatus tendon with interstitial delamination. Subscapularis tendinosis with partial-thickness tearing. Low signal likely related to CPPD deposition within the rotator cuff. The teres minor tendons are intact. Rotator muscles: No significant supraspinatus or infraspinatus muscle atrophy. Mild teres minor muscle atrophy. Glenoid labrum: Degenerative tearing of the anterior labrum. Acromion: The acromion morphology is type two. There is lateral downsloping of the acromion. Bone and joints: No focal bone marrow contusion or fracture. The bone marrow slightly heterogenous, nonspecific. Mild glenoid cartilage thinning. Mild right acromioclavicular joint osteoarthrosis with mild capsular hypertrophy. Biceps tendon: The biceps tendon is not clearly visualized within the bicipital which may represent severe biceps tendon degeneration or tear. Soft tissues: No solid or cystic mass is seen. IMPRESSION: 1. High-grade supraspinatus partial-thickness tendon tear with partial tendon retraction. 2. Partial-thickness infraspinatus and subscapularis tears. 3. Moderate background rotator cuff calcific tendinosis. 4. Degeneration/tear of the proximal long head biceps tendon. 5. Mild acromioclavicular joint osteoarthrosis. Lateral downsloping of the acromion can be a source for extremity impingement on the rotator cuff. 6. Degenerative tearing of the glenoid labrum. Electronically signed by: Humphrey Soria DO 05/30/2019 1:08 PM CDT
== END ==
LOC: MRI 11:00
PROVIDERS: ATTEND Family Medicine
DX: M75.101 Unspecified rotator cuff tear or rupture of right shoulder, not specified as traumatic (principal); M54.12 Radiculopathy, cervical region; M19.011 Primary osteoarthritis, right shoulder

== ENCOUNTER → 2019-06-06 | Outpatient (CLI) | payer MEDICARE, OTHER ==
--- NOTE | 2019-06-06 15:16 | US ---
EXAM DESCRIPTION: Thyroid CLINICAL HISTORY: 74 years, Female, THYROID NODULE COMPARISON: Cervical spine MRI dated 05/29/2019. FINDINGS: Thyroid ultrasound demonstrates a bulky thyroid gland (enlarged left thyroid gland) with heterogeneous parenchymal echotexture. The isthmus is mildly prominent measuring 6.3 mm in thickness. The right lobe measures 3.8 x 1.5 x 1.3 cm , volume of 4 mL. Within the right thyroid lobe with a 1 x 1 x 0.8 cm hyperechoic nodule is present superiorly. The left lobe measures 4.7 x 2.5 x 2.6 cm volume of 15 mL. Within the left thyroid lobe a 1.3 x 1 x 1.1 cm solid hyperechoic nodule is present medially. A 2.2 x 1.9 x 0.8 cm hyperechoic solid nodule is present. IMPRESSION: 1. Heterogenous thyroid parenchymal echotexture with bulky left thyroid gland. 2. Bilateral solid thyroid nodules (one on the right, and two in the left), the largest of which is a left thyroid 2.2 cm nodule (TR 3). Follow-up thyroid ultrasound is recommended in one year. ACR TI-RADS 2017 Recommendations: TR1: No FNA or follow up TR2: No FNA or follow up TR3: FNA if >/= 2.5 cm, follow up if 1.5 - 2.4 cm in 1, 3, and 5 years TR4: FNA if >/= 1.5 cm, follow up if 1.0 - 1.4 cm in 1, 2, 3, and 5 years TR5: FNA if >/= 1.0 cm, follow up if 0.5 - 0.9 cm every year for 5 years *ACR TI-RADS recommends that no more than two nodules with the highest ACR TI-RADS total point should be biopsied and no more than four nodules should be followed. Electronically signed by: Humphrey Soria DO 06/06/2019 3:14 PM CDT
== END ==
LOC: US 09:00
PROVIDERS: ATTEND Family Medicine
DX: E04.2 Nontoxic multinodular goiter (principal)

== ENCOUNTER → 2019-06-12 | Outpatient (CLI) | payer MEDICARE, OTHER | LOC: NC 14:20 | PROVIDERS: ATTEND Family Medicine | DX: E03.9 Hypothyroidism, unspecified (principal) ==

== ENCOUNTER → 2019-10-08 | Outpatient (CLI) | payer MEDICARE, OTHER | LOC: NC 09:34 | PROVIDERS: ATTEND Internal Medicine Endocrinology, Diabetes & Metabolism | DX: E11.40 Type 2 diabetes mellitus with diabetic neuropathy, unspecified (principal); D51.0 Vitamin B12 deficiency anemia due to intrinsic factor deficiency; I10 Essential (primary) hypertension; M79.7 Fibromyalgia; Z79.4 Long term (current) use of insulin ==

== ENCOUNTER 2019-11-28 08:04 | Emergency (ER) | payer MEDICARE, OTHER ==
[2019-11-28] MEDS ORDERED: IPRATROPIUM/ALBUTEROL 3 ML VIAL NEB ONE (08:43)
[2019-11-28] MEDS ORDERED: KETOROLAC TROMETHAMINE INJ 30 MG/ML VIAL IV ONE (08:43)
--- NOTE | 2019-11-28 08:48 | ED.PDOC ---
History of Present Illness - General Chief Complaint: Abdominal Pain Stated Complaint: Abd pain, nausea/diarrhea Time Seen by Provider: 11/28/19 08:25 Information Source: patient Exam Limitations: no limitations - History of Present Illness Initial Comments: 74 yo F with hx of large umbilical hernia s/p repair that has reoccurred some time ago who presented for upper abd pain onset several days ago, constant, non radiating, associated loose stool but reports small amounts. No pain around hernia, no change is size or look of hernia. Hx of COPD, on home oxygen, baseline SOB, baseline phlegm and cough production in the morning. Hx of CHF, her doctor recently increased her dose of lasix, improved swelling, now back to baseline, back to normal dose of lasix. Denies f/c, congestion, body aches, CP, n/v, urinary sx. Review of Systems - Review of Systems Constitutional: Denies: chills, fever EENTM: Denies: nose congestion, throat pain Respiratory: States: cough - baseline, short of breath - baseline Cardiology: Denies: chest pain, palpitations Gastrointestinal/Abdominal: States: abdominal pain, other - loose stool in small amounts, hernia present at baseline. Denies: nausea, vomiting Genitourinary: Denies: dysuria, frequency, hematuria Musculoskeletal: Denies: back pain, neck pain Skin: Denies: lesions, rash Neurological: Denies: headache, numbness, weakness Past Medical History (General) - Patient Medical History Hx Stroke: No Hx of COPD: Yes Hx Cardiac Disorders: Yes - high cholesterol Hx Congestive Heart Failure: Yes Hx Hypertension: Yes Hx Thyroid Disease: Yes Hx Diabetes: Yes Hx Gastroesophageal Reflux: Yes Hx Cancer: No Hx Hepatitis C: No Hx MRSA: No - Vaccination History Hx Tetanus, Diphtheria Vaccination: No Hx Influenza Vaccination: Yes Hx Pneumococcal Vaccination: No - Social History Hx Tobacco Use: Yes Hx Chewing Tobacco Use: No Hx Alcohol Use: No Hx Substance Use: No Hx Substance Use Treatment: No Hx Depression: No Hx Physical Abuse: No Hx Emotional Abuse: No Hx Suspected Abuse: No - Female History Patient : No Family Medical History - Family History Father Living Status: Hx Family Stroke: Yes - mom Hx Family Diabetes: Yes - mom Hx Family;Other: Cerebral aneurysm-dad Physical Exam - Physical Exam General Appearance: Alert, Comfortable, No apparent distress, Other - Obese Eyes, Ears, Nose, Throat Exam: normal ENT inspection Neck: non-tender, supple Respiratory: chest non-tender, no respiratory distress, no accessory muscle use, decreased breath sounds, other - Mild tachypnea, upper airway wheeze; no crackles, rales, rhonchi Cardiovascular/Chest: normal peripheral pulses, regular rate, rhythm, no edema, no gallop, no JVD, no murmur Peripheral Pulses: No deficit Gastrointestinal/Abdominal: non tender, soft, other - Large umbilical hernia, no color change; no rebound, guarding, distention Back Exam: no CVA tenderness Extremity: normal inspection, no pedal edema Neurologic: no motor/sensory deficits, alert, normal mood/affect, oriented x 3 Skin Exam: normal color, warm/dry Progress - Progress Progress: 11/28/19 12:33 I have explained and reviewed all results with the pt. Pt states she is pain free, ready to go home, discussed diet. I explained that emergent conditions may arise and to return to the ER for new, worsening, or any persistent conditions. I've explained the importance of f/u for recheck. All questions and concerns addressed at this time. Pt understands and agrees with plan. Pt well appearing, NAD, is stable for discharge. Gissel Jacobs MD Emergency Medicine Physician Billing Number [id number] - Results/Orders Results/Orders: 11/28/19 08:26 URINALYSIS Stat 11/28/19 08:30 EKG STAT 11/28/19 08:44 Hold Metformin x 48Hrs [id number] Laboratory Results - last 24 hr 11/28/19 11/28/19 11/28/19 08:20 08:20 08:28 WBC 8.7 RBC 3.97 L Hgb 11.1 L Hct 34.1 L MCV 85.9 MCH 28.0 MCHC 32.6 L RDW 17.7 H Plt Count 242 MPV 7.3 L Absolute Neuts (auto) 4.60 Absolute Lymphs (auto) 3.30 Absolute Monos (auto) 0.40 Absolute Eos (auto) 0.30 Absolute Basos (auto) 0.10 Neutrophils % 53.0 Lymphocytes % 37.9 Monocytes % 4.8 Eosinophils % 3.5 Basophils % 0.8 Sodium 139 Potassium 4.1 Chloride 99 L Carbon Dioxide 30 Anion Gap 14.1 BUN 14 Creatinine 0.77 BUN/Creatinine Ratio 18.2 Random Glucose 195 H Serum Osmolality 283.4 Calcium 9.2 Total Bilirubin 0.7 AST 46 H ALT 22 Alkaline Phosphatase 60 Troponin I Serum Total Protein 7.6 Albumin 3.4 Globulin 4.2 H Albumin/Globulin Ratio 0.8 L Lipase 40 11/28/19 08:28 WBC RBC Hgb Hct MCV MCH MCHC RDW Plt Count MPV Absolute Neuts (auto) Absolute Lymphs (auto) Absolute Monos (auto) Absolute Eos (auto) Absolute Basos (auto) Neutrophils % Lymphocytes % Monocytes % Eosinophils % Basophils % Sodium Potassium Chloride Carbon Dioxide Anion Gap BUN Creatinine BUN/Creatinine Ratio Random Glucose Serum Osmolality Calcium Total Bilirubin AST ALT Alkaline Phosphatase Troponin I 0.02 Serum Total Protein Albumin Globulin Albumin/Globulin Ratio Lipase CT abd/pelvis: EXAM DESCRIPTION: Abdomen/Pelvis w/Contrast CLINICAL HISTORY: abd pain COMPARISON: November 18, 2017 TECHNIQUE: Postcontrast CT images of the abdomen and pelvis are obtained using standard imaging protocol. This exam was performed according to our departmental dose-optimization program, which includes automated exposure control, adjustment of the mA and/or kV according to patient size and/or use of iterative reconstruction technique . FINDINGS: The visuali zed lung bases show mild scarring or atelectasis in the lower lobes increased from previous. Heart is enlarged. Mitral valve calcifications. Liver and spleen are enlarged. No enhancing hepatic mass. Mild nodular appearance of the liver capsule could indicate cirrhosis. Multiple tiny less than 4 mm calcified gallstones in the floor the gallbladder seen without gallbladder wall thickening. No biliary tract obstruction. Pancreas and adrenal glands are unremarkable. Moderate mostly calcific atherosclerotic disease. 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 Stable bilateral renal cortical cysts. No nephrolithiasis or ureteral obstruction. Urinary bladder is poorly distended and not well evaluated. Uterus is not identified and presumed surgically absent or atrophic. Right ovary unremarkable. Fluid attenuation 2.5 cm cyst of the left ovary is stable. No follow-up imaging is recommended. The appendix is small and unremarkable. Stomach is poorly distended but unremarkable. Large 5.7 cm defect in the anterior abdominal wall at the level of the umbilicus is again seen with herniation of mesenteric fat and loops of small bowel into a larger hernia sac to previous exam measuring at least 16.3 cm transverse by 6.2 cm AP compared to 14.0 x 5.9 cm on previous exam. No bowel obstruction or bowel wall thickening is seen. No fluid or fat stranding in the hernia sac. Moderate scattered diverticuli of the colon are seen without associated inflammatory changes or fluid collections. Borderline up to 1 cm mesenteric lymph nodes. Osseous structures show no aggressive bony lesions. Moderate to severe spondylitic changes of the spine with interval compression fracture deformity of the superior endplate of 4. Vertebral augmentation of the lower thoracic vertebral body compression fracture is seen. IMPRESSION: Mild interval enlargement of large umbilical hernia containing mesenteric fat as well as loops of mostly small bowel without bowel obstruction or incarceration at this time. Colon diverticulosis without CT evidence of diverticulitis. Cholelithiasis. Consider further evaluation with right upper quadrant ultrasound. Other chronic findings stable from previous. Electronically signed by: Matthew Voss MD 11/28/2019 9:53 AM [employer] US RUQ: PROVIDED CLINICAL HISTORY/REASON FOR EXAM: abd pain TECHNIQUE: Real-time sonographic examination of the right upper quadrant was performed by a sonogra pher and multiple images were saved for interpretation. COMPARISON: Concurrent CT FINDINGS: The visualized portions of the pancreas are normal. Liver morphology is normal, but it is diffusely increased in echogenicity. There are no focal liver lesions. The liver measures 24 cm. There is no intrahepatic biliary dilation. The common bile duct is normal. The common bile duct measures 5 mm. Gallstones are present, but there is no gallbladder wall thickening or pericholecystic fluid. The gallbladder is not dilated. The right kidney measures 11.8 x 5.1 x 6.2 cm. No hydronephrosis. The abdominal aorta is within normal limits. IMPRESSION: Cholelithiasis. No evidence of cholecystitis. Hepatomegaly with steatosis. Electronically signed by: Jose Luis Reyna MD 11/28/2019 12:04 PM [employer] Vital Signs - 24 hr 11/28/19 11/28/19 11/28/19 08:05 08:06 09:05 Temperature 97 F L Pulse Rate Pulse Rate [ 87 87 Pulse ox] Respiratory 34 H 34 H Rate Blood Pressure 133/97 133/97 [R brachial] O2 Sat by Pulse 99 97 Oximetry 11/28/19 11/28/19 09:11 10:05 Temperature Pulse Rate 102 H Pulse Rate [ 67 Pulse ox] Respiratory 32 H 14 Rate Blood Pressure 138/73 [R brachial] O2 Sat by Pulse 95 Oximetry - EKG/XRAY/CT EKG: Sinus Comments: NSR rate of 87, T wave inversion aVL, normal ST Departure - Departure Clinical Impression: Acute abdominal pain Cholelithiasis Qualifiers: Cholelithiasis location: gallbladder Cholecystitis presence: without cholecystitis Biliary obstruction: without biliary obstruction Qualified Code(s): K80.20 - Calculus of gallbladder without cholecystitis without obstruction Umbilical hernia Qualifiers: Obstruction and gangrene presence: without obstruction or gangrene Qualified Code(s): K42.9 - Umbilical hernia without obstruction or gangrene Time of Disposition: 12:32 Disposition: Discharge to Home or Self Care Health Concerns: condition: stable Departure Forms: ED Discharge - Pt. Copy, Patient Portal Self Enrollment Instructions: DI for Abdominal Pain-Adult, Abdominal Hernia (DC), Gallstones (DC) Referrals: FREDERICK GONGORA MD [Primary Care Provider] - 1 Week Home Medications: Ambulatory Orders RX: Carvedilol 3.125 mg PO BID 05/09/15 RX: Furosemide 40 mg PO BID 05/09/15 RX: Meloxicam 15 mg PO DAILY 05/09/15 Isosorbide Mononitrate [Isosorbide Mononitrate ER] 30 mg PO DAILY 04/11/16 Aspirin [Aspirin Regimen Low Dose/] 81 mg PO DAILY 03/08/18 RX: Levothyroxine Sodium 175 mcg PO DAILY 03/08/18 Sitagliptin-Metformin HCl [Janumet] 1 tab PO BID 03/08/18 Tramadol HCl [Ultram] 50 mg PO Q6H PRN #30 tab 03/25/18 Albuterol Inhaler [Ventolin Hfa Inhaler] 2 puff INH Q4H PRN 11/28/19 Budesonide (Inhalation) [Pulmicort] 0.5 mg IN BID PRN 11/28/19 Fluticasone Prop 0.05% Nasal [Flonase Nasal [place]] 50 mcg NA DAILY 11/28/19 Formoterol Fumarate [Perforomist] 20 mcg IN BID 11/28/19 Insulin Aspart [Novolog Flexpen] 15 unit SC BID 11/28/19 Insulin NPH (Human) (Isophane) [Humulin N Kwikpen] 80 unit SC BID 11/28/19 Linaclotide [Linzess] 290 mcg PO PRN PRN 11/28/19 Multiple Vitamin [Multi Vitamin] 1 tab PO DAILY 11/28/19 Potassium Chloride [K-Tab] 10 meq PO DAILY 11/28/19 RX: Albuterol Sulfate 2.5 mg IN Q4H 11/28/19 RX: Simvastatin 20 mg PO QPM 11/28/19 Additional Instructions: Follow up: [facility] As needed, if symptoms worsen Dr. Martin, general surgery, make appointment in 3 days for follow up
--- NOTE | 2019-11-28 09:55 | CT ---
EXAM DESCRIPTION: Abdomen/Pelvis w/Contrast CLINICAL HISTORY: abd pain COMPARISON: November 18, 2017 TECHNIQUE: Postcontrast CT images of the abdomen and pelvis are obtained using standard imaging protocol. This exam was performed according to our departmental dose-optimization program, which includes automated exposure control, adjustment of the mA and/or kV according to patient size and/or use of iterative reconstruction technique . FINDINGS: The visualized lung bases show mild scarring or atelectasis in the lower lobes increased from previous. Heart is enlarged. Mitral valve calcifications. Liver and spleen are enlarged. No enhancing hepatic mass. Mild nodular appearance of the liver capsule could indicate cirrhosis. Multiple tiny less than 4 mm calcified gallstones in the floor the gallbladder seen without gallbladder wall thickening. No biliary tract obstruction. Pancreas and adrenal glands are unremarkable. Moderate mostly calcific atherosclerotic disease. 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 Stable bilateral renal cortical cysts. No nephrolithiasis or ureteral obstruction. Urinary bladder is poorly distended and not well evaluated. Uterus is not identified and presumed surgically absent or atrophic. Right ovary unremarkable. Fluid attenuation 2.5 cm cyst of the left ovary is stable. No follow-up imaging is recommended. The appendix is small and unremarkable. Stomach is poorly distended but unremarkable. Large 5.7 cm defect in the anterior abdominal wall at the level of the umbilicus is again seen with herniation of mesenteric fat and loops of small bowel into a larger hernia sac to previous exam measuring at least 16.3 cm transverse by 6.2 cm AP compared to 14.0 x 5.9 cm on previous exam. No bowel obstruction or bowel wall thickening is seen. No fluid or fat stranding in the hernia sac. Moderate scattered diverticuli of the colon are seen without associated inflammatory changes or fluid collections. Borderline up to 1 cm mesenteric lymph nodes. Osseous structures show no aggressive bony lesions. Moderate to severe spondylitic changes of the spine with interval compression fracture deformity of the superior endplate of 4. Vertebral augmentation of the lower thoracic vertebral body compression fracture is seen. IMPRESSION: Mild interval enlargement of large umbilical hernia containing mesenteric fat as well as loops of mostly small bowel without bowel obstruction or incarceration at this time. Colon diverticulosis without CT evidence of diverticulitis. Cholelithiasis. Consider further evaluation with right upper quadrant ultrasound. Other chronic findings stable from previous. Electronically signed by: Matthew Voss MD 11/28/2019 9:53 AM [facility]
--- NOTE | 2019-11-28 12:06 | US ---
PROVIDED CLINICAL HISTORY/REASON FOR EXAM: abd pain TECHNIQUE: Real-time sonographic examination of the right upper quadrant was performed by a appliance line assembler and multiple images were saved for interpretation. COMPARISON: Concurrent CT FINDINGS: The visualized portions of the pancreas are normal. Liver morphology is normal, but it is diffusely increased in echogenicity. There are no focal liver lesions. The liver measures 24 cm. There is no intrahepatic biliary dilation. The common bile duct is normal. The common bile duct measures 5 mm. Gallstones are present, but there is no gallbladder wall thickening or pericholecystic fluid. The gallbladder is not dilated. The right kidney measures 11.8 x 5.1 x 6.2 cm. No hydronephrosis. The abdominal aorta is within normal limits. IMPRESSION: Cholelithiasis. No evidence of cholecystitis. Hepatomegaly with steatosis. Electronically signed by: Jose Luis Reyna MD 11/28/2019 12:04 PM [facility]
[2019-11-28 13:11] VITALS: BP 148/75; TEMP 97.8; O2SAT 98
== END 2019-11-28 12:51 | disposition home or self-care (01) ==
LOC: ER 08:04
DX: K80.20 Calculus of gallbladder without cholecystitis without obstruction (principal); K42.9 Umbilical hernia without obstruction or gangrene; J44.9 Chronic obstructive pulmonary disease, unspecified; I50.9 Heart failure, unspecified; E78.00 Pure hypercholesterolemia, unspecified; E07.9 Disorder of thyroid, unspecified; K21.9 Gastro-esophageal reflux disease without esophagitis; E11.9 Type 2 diabetes mellitus without complications; I11.0 Hypertensive heart disease with heart failure; Z99.81 Dependence on supplemental oxygen; Z79.899 Other long term (current) drug therapy; Z87.891 Personal history of nicotine dependence

== ENCOUNTER 2020-01-08 10:36 | Inpatient (IN) | payer MEDICARE, OTHER ==
--- NOTE | 2020-01-08 10:41 | ED.PDOC ---
History of Present Illness - General Time Seen by Provider: 01/08/20 10:38 Additional Information: this is an 81 year old female with history of coronary artery disease, with one previous stent done years ago, and history of copd and oxygen dependant at home patient was seeing tv and the of all the sudden she developed having pressure like chest pain, that is was 10/10 in intensity and it was making her cry patient denies nausea,,dizziness. lightheaded patient is visibly short of breath but she stated that this is her baseline patient had an appointment with her lighting specialist today but it was cancel patient stated that the pain lasted more than 20 minutes but it getting better - History of Present Illness Timing/Duration: 1/2 hour Severity/Quality: pressure, other - improving Allergies/Adverse Reactions: Allergies NO KNOWN ALLERGY Allergy (Verified 03/25/18 04:03) Home Medications: Ambulatory Orders Carvedilol 3.125 mg PO BID 05/09/15 Furosemide 40 mg PO BID 05/09/15 Meloxicam 15 mg PO DAILY 05/09/15 Isosorbide Mononitrate [Isosorbide Mononitrate ER] 30 mg PO DAILY 04/11/16 Aspirin [Aspirin Regimen Low Dose/] 81 mg PO DAILY 03/08/18 Levothyroxine Sodium 175 mcg PO DAILY 03/08/18 Sitagliptin-Metformin HCl [Janumet] 1 tab PO BID 03/08/18 Tramadol HCl [Ultram] 50 mg PO Q6H PRN #30 tab 03/25/18 Albuterol Inhaler [Ventolin Hfa Inhaler] 2 puff INH Q4H PRN 11/28/19 Albuterol Sulfate 2.5 mg IN Q4H 11/28/19 Budesonide (Inhalation) [Pulmicort] 0.5 mg IN BID PRN 11/28/19 Fluticasone Prop 0.05% Nasal [Flonase Nasal [place]] 50 mcg NA DAILY 11/28/19 Formoterol Fumarate [Perforomist] 20 mcg IN BID 11/28/19 Insulin Aspart [Novolog Flexpen] 15 unit SC BID 11/28/19 Insulin NPH (Human) (Isophane) [Humulin N Kwikpen] 80 unit SC BID 11/28/19 Linaclotide [Linzess] 290 mcg PO PRN PRN 01/24/20 Multiple Vitamin [Multi Vitamin] 1 tab PO DAILY 11/28/19 Potassium Chloride [K-Tab] 10 meq PO DAILY 11/28/19 Simvastatin 20 mg PO QPM 11/28/19 Review of Systems - Review of Systems Constitutional: States: no symptoms reported EENTM: States: no symptoms reported Respiratory: States: no symptoms reported Cardiology: States: chest pain Gastrointestinal/Abdominal: States: no symptoms reported Genitourinary: States: no symptoms reported Musculoskeletal: States: no symptoms reported Skin: States: no symptoms reported Neurological: States: no symptoms reported Endocrine: States: no symptoms reported Hematologic/Lymphatic: States: no symptoms reported Past Medical History (General) - Patient Medical History Hx Stroke: No Hx of COPD: Yes Hx Cardiac Disorders: Yes - high cholesterol Hx Congestive Heart Failure: Yes Hx Hypertension: Yes Hx Thyroid Disease: Yes Hx Diabetes: Yes Hx Gastroesophageal Reflux: Yes Hx Cancer: No Hx Hepatitis C: No Hx MRSA: No - Vaccination History Hx Tetanus, Diphtheria Vaccination: No Hx Influenza Vaccination: Yes Hx Pneumococcal Vaccination: No - Social History Hx Tobacco Use: Yes Hx Chewing Tobacco Use: No Hx Alcohol Use: No Hx Substance Use: No Hx Substance Use Treatment: No Hx Depression: No Hx Physical Abuse: No Hx Emotional Abuse: No Hx Suspected Abuse: No - Female History Patient : No Family Medical History - Family History Father Living Status: Hx Family Stroke: Yes - mom Hx Family Diabetes: Yes - mom Hx Family;Other: Cerebral aneurysm-dad Physical Exam - Physical Exam General Appearance: Alert, Well Developed, Well Groomed, Well Hydrated, Well Nourished Neck: non-tender, full range of motion, supple, normal inspection, carotid bruit Respiratory: chest non-tender, lungs clear, normal breath sounds, no respiratory distress, no accessory muscle use Cardiovascular/Chest: normal peripheral pulses, regular rate, rhythm, no edema, no gallop, no JVD, no murmur Gastrointestinal/Abdominal: normal bowel sounds, non tender, soft, no organomegaly, no pulsatile mass Extremity: normal range of motion, non-tender, normal inspection, no pedal edema 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 her EKG showed Normal sinus rythm with a heart rate of 87 and no acute ischemic changes will initiate the cardiac work up will give aspirin and nitro and we already discussed possible admission for chest pain work up 01/08/20 13:13 patient two sets of troponins that were negative, and a normal chest x ray without evidence of widened mediastinum to suggest aortic dissection, patient will be admitted for chest pain work up Departure - Departure Clinical Impression: Acute coronary syndrome Disposition: Admit Patient Condition: Fair Referrals: FREDERICK GONGORA MD [Primary Care Provider] - 1-2 Weeks Home Medications: Ambulatory Orders Carvedilol 3.125 mg PO BID 05/09/15 Furosemide 40 mg PO BID 05/09/15 Meloxicam 15 mg PO DAILY 05/09/15 Isosorbide Mononitrate [Isosorbide Mononitrate ER] 30 mg PO DAILY 04/11/16 Aspirin [Aspirin Regimen Low Dose/] 81 mg PO DAILY 03/08/18 Levothyroxine Sodium 175 mcg PO DAILY 03/08/18 Sitagliptin-Metformin HCl [Janumet] 1 tab PO BID 03/08/18 Tramadol HCl [Ultram] 50 mg PO Q6H PRN #30 tab 03/25/18 Albuterol Inhaler [Ventolin Hfa Inhaler] 2 puff INH Q4H PRN 11/28/19 Albuterol Sulfate 2.5 mg IN Q4H 11/28/19 Budesonide (Inhalation) [Pulmicort] 0.5 mg IN BID PRN 11/28/19 Fluticasone Prop 0.05% Nasal [Flonase Nasal [place]] 50 mcg NA DAILY 11/28/19 Formoterol Fumarate [Perforomist] 20 mcg IN BID 11/28/19 Insulin Aspart [Novolog Flexpen] 15 unit SC BID 11/28/19 Insulin NPH (Human) (Isophane) [Humulin N Kwikpen] 80 unit SC BID 11/28/19 Linaclotide [Linzess] 290 mcg PO PRN PRN 11/28/19 Multiple Vitamin [Multi Vitamin] 1 tab PO DAILY 11/28/19 Potassium Chloride [K-Tab] 10 meq PO DAILY 11/28/19 Simvastatin 20 mg PO QPM 11/28/19 Decision To Admit - Decistion To Admit Decision to Admit Reason: Admit from ER Decision to Admit Date: 01/08/20 Decision to Admit Time: 13:15
[2020-01-08] MEDS ORDERED: ASPIRIN TABLET 325 MG TAB PO ONE (10:42)
[2020-01-08] MEDS ORDERED: NITROGLYCERIN 0.4 MG 25 EA TAB SL PRN ×2 (10:43→16:11)
--- NOTE | 2020-01-08 11:11 | RAD ---
EXAM DESCRIPTION: Chest,1 View Clinical history: Chest pain Comparison: Chest radiograph dated February 14, 2018 Findings/impression: Single upright portable radiographic views of the chest. Evaluation of the chest is limited due to patient's body habitus and technique. Lung volumes are shallow with associated bronchovascular crowding. Cardiac silhouette shows cardiomegaly with mild central pulmonary vascular congestion. A component of this may be due to shallow depth of inspiration. No overt congestive heart failure. Subtle linear opacities in the bilateral lung bases most likely represent atelectasis. Underlying infiltrate cannot be entirely excluded. There is no pneumothorax. No acute osseous abnormality. Electronically signed by: Zack Musa MD 01/08/2020 11:10 AM [facility]
[2020-01-08] MEDS ORDERED: SODIUM CHLORIDE 0.9% (FLUSH) 10 ML SYG IV PRN (16:11)
[2020-01-08] MEDS ORDERED: ACETAMINOPHEN 325 MG TAB PO PRN (16:11)
[2020-01-08] MEDS ORDERED: MORPHINE SULFATE INJ 10 MG/ML VIAL IV PRN (16:11)
[2020-01-08] MEDS ORDERED: GLUCAGON INJ 1 MG VIAL SUBCU PRN (16:15)
[2020-01-08] MEDS ORDERED: DEXTROSE 10% 500ML IVPB PRN (16:15)
[2020-01-08] MEDS ORDERED: IV SET AND CAP CHANGE INJ INJ SCH (16:30)
[2020-01-08] MEDS: INSULIN LISPRO 100 UNITS/ML PEN SUBCU SCH ×2 (16:32→21:36)
[2020-01-08] MEDS: SODIUM CHLORIDE 0.9% (FLUSH) 10 ML SYG IV SCH (21:35)
[2020-01-08] MEDS ORDERED: ALBUTEROL SULFATE 2.5 MG/3 ML VIAL NEB ONE (21:40)
[2020-01-08] MEDS ORDERED: BUDESONIDE NEBS 0.5 MG/2 ML INH NEB ONE (21:40)
[2020-01-08] MEDS: ALBUTEROL SULFATE 2.5 MG/3 ML VIAL NEB SCH (21:40)
[2020-01-08] MEDS ORDERED: ALBUTEROL SULFATE 2.5 MG/3 ML VIAL NEB PRN (22:36)
[2020-01-09] MEDS ORDERED: PANTOPRAZOLE SODIUM IV 40 MG VIAL IV SCH (06:30)
[2020-01-09] MEDS: INSULIN LISPRO 100 UNITS/ML PEN SUBCU SCH ×2 (07:44→11:36)
[2020-01-09] MEDS: ALBUTEROL SULFATE 2.5 MG/3 ML VIAL NEB SCH (08:53)
[2020-01-09] MEDS: SODIUM CHLORIDE 0.9% (FLUSH) 10 ML SYG IV SCH (08:57)
[2020-01-09] MEDS ORDERED: ASPIRIN TABLET 325 MG TAB PO SCH (09:00)
[2020-01-09] MEDS ORDERED: BUDESONIDE NEBS 0.5 MG/2 ML INH NEB ONE (09:14)
[2020-01-09 11:29] VITALS: BP 143/75; TEMP 97; O2SAT 96
--- NOTE | 2020-01-13 15:10 | SSS ---
SUPERVISING PHYSICIAN: Steven Shultz MD DATE OF ADMISSION: 01/08/20 DATE OF DISCHARGE: 01/09/20 DISCHARGE DIAGNOSIS: 1. Chest pain, acute coronary syndrome has been ruled out. She has had negative cardiac enzymes and no changes on her EKG as well as no further chest pain. 2. Type 2 diabetes mellitus. 3. Hypertension. 4. Hypothyroidism on supplementation. 5. Morbid obesity. HISTORY OF PRESENT ILLNESS: This is a 74-year-old female patient who presented to the Emergency Room due to chest pain. She said the pain was 10/10 and she has had a history of previous stent as well as having coronary artery disease, COPD and she is oxygen dependent at home. She did not have any diaphoresis, no nausea or vomiting. It was substernal and she was having it at rest. It did not decrease with rest, nor did it increase with exertion. It was constant. She actually had an appointment with her children's ministries director on the day of admission, but her appointment was moved. The pain lasted approximately 20 to 30 minutes. When she got to the Emergency Room, it was improved. In the Emergency Room, her initial vital signs were temperature 99, heart rate 97, blood pressure 147/79, respiratory rate 24, O2 saturation 94% on 2 liters nasal cannula. Lab studies were done and showed WBCs 9.1, hemoglobin 11.3 and hematocrit 34.8. Chemistries were within normal limits except her glucose was 167. Her initial cardiac enzymes were negative. BNP was 73.9. Her chest x-ray showed lung volumes shallow with associated bronchovesicular crowding. Cardiac silhouette shows cardiomegaly with mild central pulmonary vascular congestion. No overt congestive heart failure. Linear opacities in the bilateral lung bases, most likely represent anteriorly. Her second set of cardiac enzymes were negative. I was called for hospital admission. PAST MEDICAL HISTORY: 1. Chronic obstructive pulmonary disease, oxygen dependent. 2. Type 2 diabetes mellitus. 3. Hypertension. 4. Hypothyroidism. 5. Morbid obesity. PAST SURGICAL HISTORY: 1. Hemorrhoidectomy. 2. Hernia repair. 3. Hysterectomy. 4. Knee surgery. ALLERGIES: HYDROCODONE, PENICILLIN. FAMILY HISTORY: Positive for hypertension and type 2 diabetes mellitus. SOCIAL HISTORY: She is retired. She is . She has two children. She quit smoking many years ago. She denies any ETOH or illicit drug use. REVIEW OF SYSTEMS: Negative except as per history of present illness. She presently has no chest pain. PHYSICAL EXAMINATION: VITAL SIGNS: Temperature 97. Heart rate 85. Blood pressure 143/75. Respiratory rate 24. O2 saturation 96% on 3 liters nasal cannula. GENERAL: This is a 74-year-old female patient who is morbidly obese. She is lying in her hospital bed. She is in no acute distress. HEENT: Normocephalic, atraumatic. Pupils are equal and reactive. Oropharynx is clear. NECK: Supple without mass. RESPIRATORY: Diminished breath sounds throughout. CHEST: There is equal rise and fall of the chest with inspiration and expiration. CARDIOVASCULAR: Regular rate and rhythm. GASTROINTESTINAL: Abdomen is soft, nondistended, nontender. Bowel sounds are positive. EXTREMITIES: No cyanosis, clubbing or edema. NEUROLOGIC: Awake, alert and oriented times three. Cranial nerves II-XII are grossly intact as tested. LABORATORY: Followup lab studies show WBC slightly elevated at 11.7, hemoglobin 11.7, hematocrit 37.5. Metabolic panel is unremarkable. Serial cardiac enzymes are negative. EKG shows normal sinus rhythm. Echocardiogram shows 1) Normal left ventricular size and systolic function with estimated EF of approximately 55% with no obvious regional wall motion abnormalities. 2) Normal right ventricular size and function. 3) Trace of mitral regurgitation. 4) Small pericardial effusion noted with no obvious hemodynamic significance. HOSPITAL COURSE: The patient had no further complaints of chest pain. She did have some shortness of breath, but she says that is normal for her. I recommended that she see her children's ministries director as soon as possible. She will be discharged home in stable condition. DISCHARGE PLAN: The patient will be discharged home in stable condition. She will have [place] at home. She is to resume her previous diet and increase her activity as tolerated. She has a followup appointment with Dr. Barlow on 01/15/20 at 1 PM. She is also to see Dr. Delgado at her scheduled appointment. There are no changes to her medications. She is to continue those as previously ordered. She is to return to the hospital or followup with Dr. Barlow for any problems or complications. DISCHARGE MEDICATIONS: 1. Furosemide. 2. Meloxicam. 3. Carvedilol. 4. Isosorbide mononitrate. 5. Levothyroxine. 6. Janumet. 7. Aspirin. 8. Tramadol. 9. Albuterol inhaler. 10. Fluticasone. 11. Perforomist. 12. Humulin N. 13. Linzess. 14. Potassium chloride. 15. NovoLog insulin. 16. Cyanocobalamin. 17. Calcium. #[id number] [facility]
== END 2020-01-09 13:44 | disposition home health service (06) | DRG 313 ==
LOC: ER 10:36 → MS 14:12 → OBSVTOIN 14:12
PROVIDERS: ADMIT Nurse Practitioner Acute Care; ATTEND Nurse Practitioner Acute Care
DX: R07.9 Chest pain, unspecified (principal); Z68.43 Body mass index [BMI] 50.0-59.9, adult; E11.9 Type 2 diabetes mellitus without complications; I10 Essential (primary) hypertension; E03.9 Hypothyroidism, unspecified; E66.01 Morbid (severe) obesity due to excess calories; I25.10 Atherosclerotic heart disease of native coronary artery without angina pectoris; Z95.5 Presence of coronary angioplasty implant and graft; J44.9 Chronic obstructive pulmonary disease, unspecified; Z99.81 Dependence on supplemental oxygen; Z88.0 Allergy status to penicillin; Z88.5 Allergy status to narcotic agent; Z87.891 Personal history of nicotine dependence

== ENCOUNTER → 2020-03-16 | Outpatient (CLI) | payer MEDICARE, OTHER | LOC: NC 09:47 | PROVIDERS: ATTEND Family Medicine | DX: E11.42 Type 2 diabetes mellitus with diabetic polyneuropathy (principal); I10 Essential (primary) hypertension; I25.10 Atherosclerotic heart disease of native coronary artery without angina pectoris; E03.9 Hypothyroidism, unspecified; E53.8 Deficiency of other specified B group vitamins; E78.2 Mixed hyperlipidemia ==

== ENCOUNTER 2020-04-01 18:08 | Observation (INO) | payer MEDICARE, OTHER ==
[2020-04-01] MEDS ORDERED: IPRATROPIUM/ALBUTEROL 3 ML VIAL NEB ONE (18:13)
[2020-04-01] MEDS ORDERED: ASPIRIN TABLET 325 MG TAB PO ONE (18:13)
[2020-04-01] MEDS ORDERED: ALPRAZolam 0.25 MG TAB PO ONE (18:13)
[2020-04-01] MEDS ORDERED: ALPRAZolam 0.5 MG TAB ONE (18:35)
--- NOTE | 2020-04-01 18:57 | RAD ---
EXAM DESCRIPTION: Chest,1 View CLINICAL HISTORY: 74 years Female chest pain COMPARISON: 01/08/2020 FINDINGS: Stable cardiac enlargement. Poor depth of inspiration. No acute consolidation. Small amount of atelectasis in the lung bases. Study is limited by body habitus. IMPRESSION: Stable cardiac enlargement and basilar atelectasis Electronically signed by: Kasey Jacobsen MD 04/01/2020 6:56 PM CDT
[2020-04-01] MEDS ORDERED: POTASSIUM CHLORIDE ELIXIR 20 MEQ/15 ML UD PO ONE (19:21)
--- NOTE | 2020-04-01 22:58 | ED.PDOC ---
History of Present Illness - General Chief Complaint: Chest Pain/SD Stated Complaint: Chest Pain Time Seen by Provider: 04/01/20 18:12 Source: patient Exam Limitations: no limitations - History of Present Illness Initial Comments: The patient is a 74-year-old female presented emergency room secondary to the abrupt onset of substernal chest pain/tightness that occurred while she was speaking to her family over the phone over several topics that were distressing her. The patient was very anxious at the time. She felt like it was probably a panic attack. It had completely resolved by the time she arrived here with EMS. The patient reports a distant history of coronary artery disease with apparently 1 stent in the distant past. She does take aspirin but no other blood thinners. Patient is morbidly obese and is diabetic. Timing/Duration: 1/2 hour Severity: moderate Improving Factors: nothing Worsening Factors: nothing Associated Symptoms: chest pain Allergies/Adverse Reactions: Allergies NO KNOWN ALLERGY Allergy (Verified 01/08/20 15:47) Home Medications: Ambulatory Orders Carvedilol 3.125 mg PO BID 05/09/15 Furosemide 40 mg PO BID 05/09/15 Meloxicam 15 mg PO DAILY 05/09/15 Isosorbide Mononitrate [Isosorbide Mononitrate ER] 30 mg PO DAILY 04/11/16 Aspirin [Aspirin Regimen Low Dose/] 81 mg PO DAILY 03/08/18 Levothyroxine Sodium 175 mcg PO DAILY 03/08/18 Sitagliptin-Metformin HCl [Janumet 50-1000 mg] 1 tab PO BID 03/08/18 Tramadol HCl [Ultram] 50 mg PO Q6H PRN #30 tab 03/25/18 Albuterol Inhaler [Ventolin Hfa Inhaler] 2 puff INH Q4H PRN 11/28/19 Fluticasone Prop 0.05% Nasal [Flonase Nasal [place]] 50 mcg NA DAILY 11/28/19 Formoterol Fumarate [Perforomist] 20 mcg IN BID 11/28/19 Insulin Aspart [Novolog Flexpen] 15 unit SC BID 11/28/19 Insulin NPH (Human) (Isophane) [Humulin N Kwikpen] 80 unit SC DAILY 11/28/19 Linaclotide [Linzess] 290 mcg PO PRN PRN 11/28/19 Potassium Chloride [K-Tab] 10 meq PO DAILY 11/28/19 Calcium 600 mg PO DAILY 01/08/20 Cyanocobalamin [B12] 5,000 mcg PO DAILY 01/08/20 Insulin NPH (Human) (Isophane) [Humulin N] 60 unit SC BEDTIME 01/08/20 Review of Systems - Review of Systems Constitutional: States: no symptoms reported EENTM: States: no symptoms reported - The patient did get some perioral tingling during the event Respiratory: States: short of breath - Mild during the event Cardiology: States: chest pain Gastrointestinal/Abdominal: States: no symptoms reported Genitourinary: States: no symptoms reported Musculoskeletal: States: no symptoms reported Skin: States: no symptoms reported Neurological: States: anxiety Endocrine: States: no symptoms reported All other Systems: No Change from Baseline Past Medical History (General) - Patient Medical History Hx Seizures: No Hx Stroke: No Hx Asthma: No Hx of COPD: Yes Hx Cardiac Disorders: Yes - high cholesterol Hx Congestive Heart Failure: Yes Hx Pacemaker: No Hx Hypertension: Yes Hx Thyroid Disease: Yes Hx Diabetes: Yes Hx Gastroesophageal Reflux: Yes Hx Cancer: No Hx Hepatitis C: No Hx MRSA: No - Vaccination History Hx Tetanus, Diphtheria Vaccination: No Hx Influenza Vaccination: Yes Hx Pneumococcal Vaccination: No - Social History Hx Tobacco Use: Yes Hx Chewing Tobacco Use: No Hx Alcohol Use: No Hx Substance Use: No Hx Substance Use Treatment: No Hx Depression: No Hx Physical Abuse: No Hx Emotional Abuse: No Hx Suspected Abuse: No - Activities of Daily Living Hospice Agency (if applicable):: None - Female History Patient : No - Triage Comment ED Triage Comment: pt voices she was talking with her friend on the phone and started having chest pain. pt voices she took 2 nitro SL tabs before EMS arrival. pt voices she was having anxiety while discussing her personal situations. pt face appears redenned. pt tachypneic and short of breath. Family Medical History - Family History Father Living Status: Hx Family Stroke: Yes - mom Hx Family Diabetes: Yes - mom Hx Family;Other: Cerebral aneurysm-dad Physical Exam - Physical Exam General Appearance: Alert, Anxious Eye Exam: bilateral normal Ears, Nose, Throat: hearing grossly normal, normal pharynx Neck: non-tender, full range of motion Respiratory: no respiratory distress, no accessory muscle use, wheezing - Mild scattered wheezing. She does have a history of COPD. Cardiovascular/Chest: normal peripheral pulses, regular rate, rhythm, no edema Peripheral Pulses: radial,right: 2+, radial,left: 2+ Gastrointestinal/Abdominal: normal bowel sounds, non tender - Morbidly obese. The patient does have a large ventral hernia that is longstanding and not painful., soft Rectal Exam: deferred Back Exam: no CVA tenderness, no vertebral tenderness Extremity: normal range of motion, non-tender, normal inspection, no pedal edema - Mild chronic, normal capillary refill Neurologic: unit assembler II-XII nml as tested, alert, normal mood/affect - She is still anxious, oriented x 3 Skin Exam: normal color Comments: Vital Signs - 24 hr 04/01/20 04/01/20 04/01/20 18:10 18:40 19:10 Temperature 99.1 F 98.1 F Pulse Rate 93 H 93 H Pulse Rate [ 93 H 90 brachial] Respiratory 22 24 16 Rate Blood Pressure 141/63 128/61 [Right Arm] O2 Sat by Pulse 93 L 96 94 L Oximetry 04/01/20 04/01/20 04/01/20 20:00 21:00 22:00 Temperature 99.4 F Pulse Rate Pulse Rate [ 89 83 88 brachial] Respiratory 16 16 14 Rate Blood Pressure 96/74 106/53 119/54 [Right Arm] O2 Sat by Pulse 95 98 Oximetry Progress - Progress Progress: 04/01/20 23:05 The patient is a 74-year-old female presenting after an episode of chest pain that was brought on during a period of severe anxiety. This is most likely the manifestations of an anxiety attack, the patient does have numerous risk factors including her COPD, diabetes, obesity and previous coronary artery disease. The patient is chest pain-free at this time. She is receiving a dose of Lovenox and has received aspirin. She also received breathing treatment for her COPD and will be followed for her diabetes. The patient does warrant a longer rule out given her comorbidities. Admit for continued monitoring and care. She is resting comfortably at this time. [email or web address] [id number] - Results/Orders Results/Orders: Chest x-ray shows mild cardiomegaly, poor inspiration, possible mild atelectasis. EKG shows normal sinus rhythm at 92 bpm. Mild left axis deviation as well as poor R wave progression. Prolonged QT interval. No definitive ST segment or T wave changes indicative of acute ischemia. Laboratory Tests 04/01/20 04/01/20 04/01/20 18:41 18:41 18:41 WBC 13.5 H RBC 4.67 Hgb 11.9 L Hct 37.8 MCV 80.9 L MCH 25.6 L MCHC 31.6 L RDW 18.7 H Plt Count 295 MPV 7.7 Absolute Neuts (auto) 9.90 H Absolute Lymphs (auto) 2.80 Absolute Monos (auto) 0.50 Absolute Eos (auto) 0.30 Absolute Basos (auto) 0.10 Neutrophils % 73.3 Lymphocytes % 20.6 Monocytes % 3.4 Eosinophils % 1.9 Basophils % 0.8 PT 10.3 INR 1.04 PTT (SP) 30.4 Sodium 138 Potassium 3.3 L Chloride 96 L Carbon Dioxide 30 Anion Gap 15.3 BUN 17 Creatinine 0.86 BUN/Creatinine Ratio 19.8 POC Glucose Random Glucose 192 H Serum Osmolality 282.4 Calcium 8.8 Magnesium 1.8 Total Bilirubin 0.8 AST 28 ALT 19 Alkaline Phosphatase 78 Creatine Kinase 58 CK-MB (CK-2) 1.0 CK-MB (CK-2) % Not Reportable Troponin I < 0.02 B-Natriuretic Peptide 52.5 Serum Total Protein 7.9 Albumin 3.7 Globulin 4.2 H Albumin/Globulin Ratio 0.9 L TSH 18.85 H 04/01/20 04/01/20 18:41 21:42 WBC RBC Hgb Hct MCV MCH MCHC RDW Plt Count MPV Absolute Neuts (auto) Absolute Lymphs (auto) Absolute Monos (auto) Absolute Eos (auto) Absolute Basos (auto) Neutrophils % Lymphocytes % Monocytes % Eosinophils % Basophils % PT INR PTT (SP) Sodium Potassium Chloride Carbon Dioxide Anion Gap BUN Creatinine BUN/Creatinine Ratio POC Glucose 170 H Random Glucose Serum Osmolality Calcium Magnesium Total Bilirubin AST ALT Alkaline Phosphatase Creatine Kinase CK-MB (CK-2) CK-MB (CK-2) % Troponin I < 0.02 B-Natriuretic Peptide Serum Total Protein Albumin Globulin Albumin/Globulin Ratio TSH Departure - Departure Clinical Impression: Panic attack Chest pain Qualifiers: Chest pain type: unspecified Qualified Code(s): R07.9 - Chest pain, unspecified Disposition: Admit Patient Condition: Fair Departure Forms: ED Discharge - Pt. Copy, Patient Portal Self Enrollment Referrals: FREDERICK GONGORA MD [Primary Care Provider] - 1-2 Weeks Home Medications: Ambulatory Orders Carvedilol 3.125 mg PO BID 05/09/15 Furosemide 40 mg PO BID 05/09/15 Meloxicam 15 mg PO DAILY 05/09/15 Isosorbide Mononitrate [Isosorbide Mononitrate ER] 30 mg PO DAILY 04/11/16 Aspirin [Aspirin Regimen Low Dose/] 81 mg PO DAILY 03/08/18 Levothyroxine Sodium 175 mcg PO DAILY 03/08/18 Sitagliptin-Metformin HCl [Janumet 50-1000 mg] 1 tab PO BID 03/08/18 Tramadol HCl [Ultram] 50 mg PO Q6H PRN #30 tab 03/25/18 Albuterol Inhaler [Ventolin Hfa Inhaler] 2 puff INH Q4H PRN 11/28/19 Fluticasone Prop 0.05% Nasal [Flonase Nasal [place]] 50 mcg NA DAILY 11/28/19 Formoterol Fumarate [Perforomist] 20 mcg IN BID 11/28/19 Insulin Aspart [Novolog Flexpen] 15 unit SC BID 11/28/19 Insulin NPH (Human) (Isophane) [Humulin N Kwikpen] 80 unit SC DAILY 11/28/19 Linaclotide [Linzess] 290 mcg PO PRN PRN 11/28/19 Potassium Chloride [K-Tab] 10 meq PO DAILY 11/28/19 Calcium 600 mg PO DAILY 01/08/20 Cyanocobalamin [B12] 5,000 mcg PO DAILY 01/08/20 Insulin NPH (Human) (Isophane) [Humulin N] 60 unit SC BEDTIME 01/08/20 Decision To Admit - Decistion To Admit Decision to Admit Reason: Medical Nature Decision to Admit Date: 04/01/20 Decision to Admit Time: 23:06
[2020-04-01] MEDS ORDERED: ENOXAPARIN SODIUM 60 MG/0.6 ML SYG SUBCU ONE (23:00)
[2020-04-01] MEDS ORDERED: INSULIN,ISOP(HUMAN(NPH) 100 UNITS/ML PEN SUBCU ONE (23:17)
[2020-04-01] MEDS ORDERED: LEVOTHYROXINE SODIUM 0.025 MG TAB ONE (23:47)
[2020-04-01] MEDS ORDERED: LEVOTHYROXINE SODIUM 0.1 MG TAB ONE (23:58)
[2020-04-02] MEDS ORDERED: SODIUM CHLORIDE 0.9% (FLUSH) 10 ML SYG IV PRN (02:01)
[2020-04-02] MEDS ORDERED: ACETAMINOPHEN 325 MG TAB PO PRN (02:01)
[2020-04-02] MEDS ORDERED: NITROGLYCERIN 0.4 MG 25 EA TAB SL PRN (02:01)
[2020-04-02] MEDS ORDERED: MORPHINE SULFATE INJ 10 MG/ML VIAL IV PRN (02:01)
[2020-04-02] MEDS ORDERED: cefTRIAXone SODIUM 1 GM VIAL ONE (02:10)
[2020-04-02] MEDS ORDERED: SODIUM CHL 0.9% 50ML MIN-BAG+ 50 ML IVPB ONE (02:10)
[2020-04-02] MEDS ORDERED: IV SET AND CAP CHANGE INJ INJ SCH (02:30)
[2020-04-02] MEDS ORDERED: cefTRIAXone SODIUM 1 GM in SODIUM CHL 0.9% 50ML MIN-BAG+ 50 ML IVPB SCH (02:30)
[2020-04-02] MEDS ORDERED: SODIUM CHLORIDE 0.9% (FLUSH) 10 ML SYG IV SCH (09:00)
[2020-04-02 09:29] VITALS: BP 127/75; TEMP 98.2
[2020-04-02] MEDS ORDERED: CITALOPRAM HBR 20 MG TAB PO SCH (10:00)
--- NOTE | 2020-04-02 10:46 | SSS ---
SUPERVISING PHYSICIAN: Steven Shultz MD DATE OF ADMISSION: 04/01/20 DATE OF DISCHARGE: 04/02/20 DISCHARGE DIAGNOSIS: 1. Chest pain, rule out acute coronary syndrome, which has been ruled out. She had negative cardiac enzymes and no changes on her EKG as well as no further chest pain. 2. Type 2 diabetes mellitus. 3. Hypertension. 4. Anxiety and depression. 5. Hypothyroidism on supplementation. 6. Morbid obesity. HISTORY OF PRESENT ILLNESS: This is a 74-year-old female patient who presented to the Emergency Room secondary to an abrupt onset of chest pain. She had been talking to her family and became quite upset with her conversation with them and a panic attack was also considered. She was very anxious in the Emergency Room and by the time she came to the Emergency Room, her chest pain had subsided. She did not have any diaphoresis. The pain was constant. It did not worsen with exertion or did not improve with rest. Her initial vital signs showed temperature 99.1, heart rate 93, blood pressure 141/63, respiratory rate 18, O2 saturation 93% on 3 liters nasal cannula. Her lab studies showed WBC 13,500, hemoglobin 11.9, hematocrit 36.8. Her coagulation studies were within normal limits. Her sodium was 138, potassium 3.2, chloride 96. Glucose 192. Liver enzymes were within normal limits. Her TSH was 18.85. Initial cardiac enzymes were negative. Her 2 hour troponin following her initial enzymes was also negative. She was given some potassium in the Emergency Room as well as some Lovenox. A dose of Rocephin was given secondary to possible urinary tract infection. She was placed in observation in the hospital to rule out acute coronary syndrome. It is to be noted she was in the hospital at the end of January for a very similar incident. The day of admission in January, she was to see her rail doweling machine operator and due to the COVID pandemic, she has not been able to see her rail doweling machine operator. She did have an echocardiogram done at that visit in January. PAST MEDICAL HISTORY: 1. Chronic obstructive pulmonary disease, oxygen dependent. 2. Type 2 diabetes mellitus. 3. Hypertension. 4. Hypothyroidism. 5. Morbid obesity. PAST SURGICAL HISTORY: 1. Hemorrhoidectomy. 2. Hernia repair. 3. Hysterectomy. 4. Knee surgery. ALLERGIES: HYDROCODONE, PENICILLIN. FAMILY HISTORY: Positive for hypertension and type 2 diabetes mellitus. SOCIAL HISTORY: She is retired. She is . She has two children. She quit smoking many years ago and denies any ETOH or illicit drug use. REVIEW OF SYSTEMS: Negative except as per history of present illness and presently has not chest pain. PHYSICAL EXAMINATION: VITAL SIGNS: Temperature 98.2, heart rate 75, blood pressure 127/75, respiratory rate 20, O2 saturation 95%. GENERAL: This is a 74-year-old female patient who is morbidly obese. She is lying comfortably in her bed. She does have her CPAP on. HEENT: Normocephalic, atraumatic. Pupils are equal and reactive. Oropharynx is clear. NECK: Supple without mass. RESPIRATORY: Somewhat diminished at the bases, otherwise clear to auscultation. CHEST: There is equal rise and fall of the chest with inspiration and expiration. CARDIOVASCULAR: Regular rate and rhythm. GASTROINTESTINAL: Abdomen is soft, nondistended, nontender. Bowel sounds are positive. EXTREMITIES: No cyanosis, clubbing or edema. NEUROLOGIC: Awake, alert and oriented times three. Cranial nerves II-XII are grossly intact as tested. LABORATORY: Her followup WBC was 12,200 with hemoglobin 11.2, hematocrit 35.1. Sodium 141, potassium 3.2, chloride 98. Glucose 152. Followup cardiac enzymes were negative. BNP 52.5. Urinalysis unremarkable except for 3+ urine bacteria. RADIOLOGY: Chest x-ray from the Emergency Room showed cardiac enlargement and basilar atelectasis. DISCHARGE PLAN: The patient will be discharged home in stable condition. She is to increase her activity as tolerated and continue a diabetic diet. I have started her on Celexa as a routine medication. She will need to followup with Dr. Barlow about the Celexa. It is also recommended that there be an increase in her thyroid medication as her TSH was high at greater than 18, but I have not adjusted her thyroid medicine. She will also need a followup with Dr. Delgado, her rail doweling machine operator, to review her echocardiogram and if she needs any further cardiac testing. In addition to her routine home medications, I have sent in some Celexa. The dosing may need to be adjusted in a week or two. She has a followup appointment with Dr. Barlow at 10:30 on 05/04/20. It will be via telephone and we have discussed with the patient that she will have a telephone visit with Dr. Barlow at that time. She is to return to the hospital or followup with Dr. Barlow for any problems or complications. DISCHARGE MEDICATIONS: 1. Furosemide. 2. Meloxicam. 3. Carvedilol. 4. Isosorbide mononitrate. 5. Levothyroxine. 6. Janumet. 7. Aspirin. 8. Tramadol. 9. Albuterol. 10. Fluticasone nasal spray. 11. Perforomist. 12. Humulin N. 13. Linzess. 14. Potassium chloride. 15. NovoLog. 16. NPH insulin. 17. Cyanocobalamin. 18. Calcium. 19. Citalopram. #[id number] [facility] FACILITYJasmina
[2020-04-02] MEDS ORDERED: POTASSIUM CHLORIDE 20 MEQ TAB PO ONE (11:19)
[2020-04-02 12:38] VITALS: O2SAT 99
[2020-04-02] MEDS ORDERED: LEVOTHYROXINE SODIUM 0.1 MG TAB PO ONE (23:08)
== END 2020-04-02 13:19 | disposition home health service (06) ==
LOC: ER 18:08 → MS 04-02 00:28
PROVIDERS: ADMIT Nurse Practitioner Family; ATTEND Nurse Practitioner Family
DX: R07.89 Other chest pain (principal); E11.9 Type 2 diabetes mellitus without complications; I11.9 Hypertensive heart disease without heart failure; F41.9 Anxiety disorder, unspecified; F32.9 Major depressive disorder, single episode, unspecified; E03.9 Hypothyroidism, unspecified; E66.01 Morbid (severe) obesity due to excess calories; E87.6 Hypokalemia; R82.71 Bacteriuria; J44.9 Chronic obstructive pulmonary disease, unspecified; E78.00 Pure hypercholesterolemia, unspecified; K21.9 Gastro-esophageal reflux disease without esophagitis; Z68.43 Body mass index [BMI] 50.0-59.9, adult; Z99.81 Dependence on supplemental oxygen; Z79.4 Long term (current) use of insulin; Z79.890 Hormone replacement therapy; Z79.82 Long term (current) use of aspirin; Z79.1 Long term (current) use of non-steroidal anti-inflammatories (NSAID); Z79.899 Other long term (current) drug therapy; Z88.0 Allergy status to penicillin; Z88.5 Allergy status to narcotic agent; Z87.891 Personal history of nicotine dependence; Z82.49 Family history of ischemic heart disease and other diseases of the circulatory system; Z83.3 Family history of diabetes mellitus; Z82.3 Family history of stroke
CPT/HCPCS: 96374; 96372; J0696; J1650; J7620; J1815; J7050; 80048; 82553 ×3; 80053; 82948 ×2; 36415 ×3; 81001; 85025 ×2; 82550 ×3; 83735; 85730; 85610; 84443; 84484 ×5; 83880; 71045; 94640; 99285; 93005 ×2

== ENCOUNTER → 2020-04-30 | Outpatient (CLI) | payer MEDICARE, OTHER | LOC: NC 10:31 | PROVIDERS: ATTEND Family Medicine | DX: R30.0 Dysuria (principal) ==

== ENCOUNTER 2020-05-10 12:07 | Emergency (ER) | payer MEDICARE, OTHER ==
[2020-05-10] MEDS ORDERED: WATER FOR INJ 10 ML VIAL INJ ONE (12:08)
[2020-05-10] MEDS ORDERED: MIDAZOLAM HCL 50 MG/10 ML ONE (12:25)
[2020-05-10] MEDS ORDERED: SODIUM CHLORIDE 0.9% 50ML 50 ML ONE (12:25)
[2020-05-10] MEDS ORDERED: ETOMIDATE INJECTION 2 MG/ML 20ML VIAL IV ONE (12:26)
[2020-05-10] MEDS ORDERED: ROCURONIUM BROMIDE 10 MG/ML VIAL IV ONE (12:26)
[2020-05-10] MEDS ORDERED: DEXAMETHASONE INJ 10 MG/ML VIAL IV ONE (12:30)
[2020-05-10] MEDS ORDERED: MIDAZOLAM INJ 25 MG in SODIUM CHLORIDE 0.9% 50ML 25 ML IVPB SCH (12:30)
[2020-05-10] MEDS ORDERED: cefTRIAXone SODIUM 1 GM in SODIUM CHL 0.9% 50ML MIN-BAG+ 50 ML IVPB ONE (12:30)
[2020-05-10] MEDS ORDERED: SODIUM CHLORIDE 0.9% 1000ML 1,000 ML IVS PRN (12:31)
[2020-05-10] MEDS ORDERED: SODIUM CHLORIDE 0.9% 1000ML 1,000 ML IVS ONE (12:32)
--- NOTE | 2020-05-10 12:36 | ED.PDOC ---
History of Present Illness - General Time Seen by Provider: 05/10/20 12:24 - History of Present Illness Initial Comments: CC: respiratory distress 75 F + pmh COPD presents via EMS for acute respiratory distress. Pt was found SOB with decreased responsiveness. Pt presents to ED GCS 8 and not responding to commands. Saturating 60-70's by NRB mask. Allergies/Adverse Reactions: Allergies NO KNOWN ALLERGY Allergy (Verified 01/08/20 15:47) Home Medications: Ambulatory Orders Carvedilol 3.125 mg PO BID 05/09/15 Furosemide 40 mg PO BEDTIME 05/09/15 Meloxicam 15 mg PO DAILY 05/09/15 Isosorbide Mononitrate [Isosorbide Mononitrate ER] 30 mg PO DAILY 04/11/16 Levothyroxine Sodium 175 mcg PO DAILY 03/08/18 Sitagliptin-Metformin HCl [Janumet 50-1000 mg] 1 tab PO BID 03/08/18 Tramadol HCl [Ultram] 50 mg PO Q6H PRN #30 tab 03/25/18 Albuterol Inhaler [Ventolin Hfa Inhaler] 2 puff INH Q4H PRN 11/28/19 Fluticasone Prop 0.05% Nasal [Flonase Nasal Stuart] 50 mcg NA DAILY 11/28/19 Formoterol Fumarate [Perforomist] 20 mcg IN BID 11/28/19 Insulin Aspart [Novolog Flexpen] 15 unit SC BID 11/28/19 Insulin NPH (Human) (Isophane) [Humulin N Kwikpen] 80 unit SC DAILY 11/28/19 Linaclotide [Linzess] 290 mcg PO PRN PRN 11/28/19 Potassium Chloride [K-Tab] 10 meq PO DAILY 11/28/19 Atorvastatin Calcium 40 mg PO 04/02/20 Budesonide (Inhalation) [Budesonide] 0.5 mg IN BID 04/02/20 Citalopram Hydrobromide [Celexa] 20 mg PO DAILY #30 tab 04/02/20 Furosemide 80 mg PO DAILY 04/02/20 Multiple Vitamins W/ Minerals [Multi For Her 50+] 1 capsule PO DAILY 04/02/20 Review of Systems - Review of Systems Unable to Obtain Due To: condition, clinical condition, other - not responsive, respiratory failure Past Medical History (General) - Patient Medical History Hx Seizures: No Hx Stroke: No Hx Asthma: No Hx of COPD: Yes Hx Cardiac Disorders: Yes - high cholesterol Hx Congestive Heart Failure: Yes Hx Pacemaker: No Hx Hypertension: Yes Hx Thyroid Disease: Yes Hx Diabetes: Yes Hx Gastroesophageal Reflux: Yes Hx Cancer: No Hx Hepatitis C: No Hx MRSA: No - Vaccination History Hx Tetanus, Diphtheria Vaccination: No Hx Influenza Vaccination: Yes Hx Pneumococcal Vaccination: No - Social History Hx Tobacco Use: Yes Hx Chewing Tobacco Use: No Hx Alcohol Use: No Hx Substance Use: No Hx Substance Use Treatment: No Hx Depression: No Hx Physical Abuse: No Hx Emotional Abuse: No Hx Suspected Abuse: No - Female History Patient : No Family Medical History - Family History Father Living Status: Hx Family Stroke: Yes - mom Hx Family Diabetes: Yes - mom Hx Family;Other: Cerebral aneurysm-dad Physical Exam - Physical Exam General Appearance: Obvious distress, Ill Appearing, Obese Eye Exam: bilateral normal ENT Exam: normal ENT inspection Neck: full range of motion, supple, normal inspection, trachea midline Respiratory: respiratory distress, decreased breath sounds, accessory muscle use, crackles, rhonchi, other - hypoxic, acute respiratory failure while on NRB mask Cardiovascular/Chest: no JVD, no murmur, tachycardia, other - regular rhythm Gastrointestinal/Abdominal: other - soft, + soft and partially reducible hernia without concern for incarceration, no peritoneal signs, Extremity: normal inspection, no pedal edema Neurologic: other - GCS 8, not following commands or responding, pupils 3mm PERRLA EOM symmetric bilaterally Skin Exam: cyanosis, pallor Progress - Progress Progress: Arrived @ 1208. Intubated @1221 s/p IV being obtained. [facility] called for transfer @1223. [facility] services canceled due to weather. Presents in respiratory failure saturating in 60-70's O2 saturation on NRB mask. Pt required immmediate/emergent intubation. Intubation successful and pt appears to be with in resp failure secondary to COPD exacerbation. Pt will require transfer for ICU level of care. Labs, imaging, and appropriate pharmacotherapy to be ordered/given. CRITICAL CARE PROCEDURE: 49 MINUTES. Pt in respiratory failure requiring emergent intubation. Labs, Imaging, results monitored and reviewed. I have consulted with transferring hospital. I did not take over care for this pt from another provider. Prior records reviewed. - Results/Orders Results/Orders: EKG @1226 Read @1234 ST @ 106, nl axis, intervals wnl, no ST elevations/depressions, nonspecific ST/T-wave changes. No STEMI. Septal infarct age undetermined. Compared with 04/01/2020 EKG: New tachycardia, improved QRS, normalized axis; otherwise no concerns for acute ischemia. Vital Signs - 24 hr 05/10/20 05/10/20 05/10/20 12:26 12:49 13:04 Temperature 98.1 F Pulse Rate [ 111 H brachial] Respiratory 24 24 Rate Respiratory 18 Rate [Volume Control Data] Blood Pressure 209/171 [Left Arm] O2 Sat by Pulse 74 L Oximetry 05/10/20 12:28 Mechanical Ventilation DAILY 05/10/20 12:29 Arterial Blood Gas Assessment STAT 05/10/20 12:30 Midazolam Inj [Versed Inj] 25 mg Sodium Chloride 0.9% 50Ml [NS 50ml] 25 ml IVPB .Q24H EKG STAT 05/10/20 12:31 Sodium Chloride 0.9% 1000ML [Ns 1000 ml] 1,000 ml IVS .QD 05/10/20 12:36 Miscellaneous Nursing Order .ONCE 05/10/20 12:45 BLOOD CULTURE Stat 05/10/20 13:39 CTA Chest [CT] Stat 05/10/20 14:00 levoFLOXacin 750MG IV [Levaquin 750MG IV] 750 mg Premix Bag 1 bag IVPB ONCE Laboratory Results - last 24 hr 05/10/20 05/10/20 05/10/20 12:45 12:45 12:45 WBC 13.3 H RBC 4.29 Hgb 10.9 L Hct 37.8 MCV 88.1 MCH 26.4 MCHC 28.8 L RDW 18.8 H Plt Count 279 MPV 10.6 Neut % Not Reportable Absolute Neuts (auto) Cancelled Absolute Lymphs (auto) Not Reportable Absolute Monos (auto) Not Reportable Absolute Eos (auto) Cancelled Absolute Basos (auto) Cancelled Neutrophils % Cancelled Neutrophils % (Manual) 64.0 Lymphocytes % Not Reportable Lymphocytes % (Manual) 30.0 Monocytes % Not Reportable Monocytes % (Manual) 3.0 Eosinophils % Cancelled Basophils % Cancelled Absolute Neutrophils Not Reportable Band Neutrophils 1.0 Myelocytes 2.0 H Hypochromia 1+ Platelet Estimate Normal RBC Morphology Cancelled Anisocytosis 2+ D-Dimer, Quantitative 1160.0 H* Sodium 142 Potassium 4.2 Chloride 97 L Carbon Dioxide 33 H Anion Gap 16.2 BUN 16 Creatinine 0.92 BUN/Creatinine Ratio 17.4 Random Glucose 175 H Serum Osmolality 288.6 Lactic Acid Calcium 8.8 Magnesium Total Bilirubin 0.6 AST 27 ALT 19 Alkaline Phosphatase 74 Troponin I Serum Total Protein 7.7 Albumin 3.6 Globulin 4.1 H Albumin/Globulin Ratio 0.9 L 05/10/20 05/10/20 05/10/20 12:45 12:45 12:45 WBC RBC Hgb Hct MCV MCH MCHC RDW Plt Count MPV Neut % Absolute Neuts (auto) Absolute Lymphs (auto) Absolute Monos (auto) Absolute Eos (auto) Absolute Basos (auto) Neutrophils % Neutrophils % (Manual) Lymphocytes % Lymphocytes % (Manual) Monocytes % Monocytes % (Manual) Eosinophils % Basophils % Absolute Neutrophils Band Neutrophils Myelocytes Hypochromia Platelet Estimate RBC Morphology Anisocytosis D-Dimer, Quantitative Sodium Potassium Chloride Carbon Dioxide Anion Gap BUN Creatinine BUN/Creatinine Ratio Random Glucose Serum Osmolality Lactic Acid 3.2 H* Calcium Magnesium 2.0 Total Bilirubin AST ALT Alkaline Phosphatase Troponin I 0.02 Serum Total Protein Albumin Globulin Albumin/Globulin Ratio EXAM DESCRIPTION: Chest,1 View CLINICAL HISTORY: 75 years Female, copd exacerbation, s/p intubation COMPARISON: 04/01/2020 Findings: One view(s)/radiograph(s) Endotracheal tube, the tip is difficult to visualize given habitus and technique. Cardiomegaly. Pulmonary vascular congestion. Multifocal bilateral consolidative and groundglass airspace opacities most notably in the right lower lobe. No acute osseous abnormality. IMPRESSION: Multifocal bilateral consolidative and groundglass airspace opacities; pneumonia or pulmonary edema. Electronically signed by: Jose Luis Reyna MD 05/10/2020 12:46 PM CDT CTA pending prior to transport. EXAM DESCRIPTION: Chest,1 View CLINICAL HISTORY: Nasogastric tube placement. Endotracheal intubation FINDINGS/ IMPRESSION: Nasogastric tube distal tip off the inferior edge of the [id number] in the upper abdomen Endotracheal tube distal tip is low, appears to be located about 1 cm above the willy Cardiomegaly with central vascular congestion. Improved aeration in the right lung base and retrocardiac left lower lobe No pneumothorax. No acute bony abnormality Electronically signed by: Steven Lynn MD 05/10/2020 2:16 PM CDT I have reviewed all imaging and official radiology reads and agree with above findings. Procedures - Intubation Time of Intubation: 12:21 Intubation Method: orotracheal Tube Size (cm): 7.5 Medications: Versed - Induction with Etomidate and Rocuronium. Versed given as sedation drip after intubation Breath Sounds after Intubation: equal Intubation Complications: no complications Post Intubation Xray: Yes - Tube with good placement. No complications or oropharyngeal trauma. Departure - Departure Clinical Impression: COPD with acute exacerbation, Respiratory failure requiring intubation Time of Disposition: 12:38 Disposition: Transfer to Hospital Condition: Serious Referrals: FREDERICK GONGORA MD [Primary Care Provider] - 1-2 Weeks Home Medications: Ambulatory Orders Carvedilol 3.125 mg PO BID 05/09/15 Furosemide 40 mg PO BEDTIME 05/09/15 Meloxicam 15 mg PO DAILY 05/09/15 Isosorbide Mononitrate [Isosorbide Mononitrate ER] 30 mg PO DAILY 04/11/16 Levothyroxine Sodium 175 mcg PO DAILY 03/08/18 Sitagliptin-Metformin HCl [Janumet 50-1000 mg] 1 tab PO BID 03/08/18 Tramadol HCl [Ultram] 50 mg PO Q6H PRN #30 tab 03/25/18 Albuterol Inhaler [Ventolin Hfa Inhaler] 2 puff INH Q4H PRN 11/28/19 Fluticasone Prop 0.05% Nasal [Flonase Nasal Stuart] 50 mcg NA DAILY 11/28/19 Formoterol Fumarate [Perforomist] 20 mcg IN BID 11/28/19 Insulin Aspart [Novolog Flexpen] 15 unit SC BID 11/28/19 Insulin NPH (Human) (Isophane) [Humulin N Kwikpen] 80 unit SC DAILY 11/28/19 Linaclotide [Linzess] 290 mcg PO PRN PRN 11/28/19 Potassium Chloride [K-Tab] 10 meq PO DAILY 11/28/19 Atorvastatin Calcium 40 mg PO 04/02/20 Budesonide (Inhalation) [Budesonide] 0.5 mg IN BID 04/02/20 Citalopram Hydrobromide [Celexa] 20 mg PO DAILY #30 tab 04/02/20 Furosemide 80 mg PO DAILY 04/02/20 Multiple Vitamins W/ Minerals [Multi For Her 50+] 1 capsule PO DAILY 04/02/20 Transfer to Outside Facility - Transfer Information Decision to Transfer Date: 05/10/20 Decision to Transfer Time: 12:38 Reason for Transfer: ICU Accepting Facility: [facility]
--- NOTE | 2020-05-10 12:47 | RAD ---
EXAM DESCRIPTION: Chest,1 View CLINICAL HISTORY: 75 years Female, copd exacerbation, s/p intubation COMPARISON: 04/01/2020 Findings: One view(s)/radiograph(s) Endotracheal tube, the tip is difficult to visualize given habitus and technique. Cardiomegaly. Pulmonary vascular congestion. Multifocal bilateral consolidative and groundglass airspace opacities most notably in the right lower lobe. No acute osseous abnormality. IMPRESSION: Multifocal bilateral consolidative and groundglass airspace opacities; pneumonia or pulmonary edema. Electronically signed by: Jose Luis Reyna MD 05/10/2020 12:46 PM CDT
[2020-05-10] MEDS ORDERED: fentaNYL CITRATE INJ 50 MCG/ML AMP IV ONE (14:00)
[2020-05-10] MEDS ORDERED: levoFLOXacin 750MG IV 750 MG in PREMIX BAG 1 BAG IVPB ONE (14:00)
--- NOTE | 2020-05-10 14:17 | RAD ---
EXAM DESCRIPTION: Chest,1 View CLINICAL HISTORY: Nasogastric tube placement. Endotracheal intubation FINDINGS/ IMPRESSION: Nasogastric tube distal tip off the inferior edge of the [id number] in the upper abdomen Endotracheal tube distal tip is low, appears to be located about 1 cm above the willy Cardiomegaly with central vascular congestion. Improved aeration in the right lung base and retrocardiac left lower lobe No pneumothorax. No acute bony abnormality Electronically signed by: Steven Lynn MD 05/10/2020 2:16 PM CDT
[2020-05-10 15:05] VITALS: TEMP 98.3; O2SAT 98
[2020-05-10 15:13] VITALS: BP 118/74
== END 2020-05-10 14:30 | disposition short-term general hospital (02) ==
LOC: ER 12:07
DX: J96.90 Respiratory failure, unspecified, unspecified whether with hypoxia or hypercapnia (principal); J44.1 Chronic obstructive pulmonary disease with (acute) exacerbation; E78.00 Pure hypercholesterolemia, unspecified; E11.9 Type 2 diabetes mellitus without complications; I50.9 Heart failure, unspecified; I11.0 Hypertensive heart disease with heart failure; Z87.891 Personal history of nicotine dependence; Z79.4 Long term (current) use of insulin; Z79.899 Other long term (current) drug therapy
CPT/HCPCS: 36415; 36600; 71045; 80053; 82803; 82805; 83605; 83735; 84484; 85025; 85379; 87040; 93005; 94002; 94770; A4216; J0696; J1100; J3010; J7050

== ENCOUNTER → 2020-06-16 | Outpatient (CLI) | payer MEDICARE, OTHER ==
--- NOTE | 2020-06-17 08:49 | US ---
EXAM DESCRIPTION: Venous,Lower Extremity LT (accession [id number]), Venous,Lower Extremity RT (accession [id number]): Ultrasound. CLINICAL HISTORY: PAIN. Bilateral lower extremities. COMPARISON: None Available. TECHNIQUE: Two -dimensional and doppler sonographic evaluation of the deep venous system of the bilateral lower extremities. FINDINGS: Doppler evaluation shows normal color flow and normal phasicity and augmentation of the bilateral common femoral veins, junctions with the bilateral proximal saphenous veins, femoral veins, popliteal veins, greater saphenous veins,, peroneal and posterior tibial veins. These veins showed normal occlusion with transducer pressure. Two-dimensional survey showed no echogenic clot within these veins. IMPRESSION: Duplex ultrasound evaluation of the bilateral lower extremity deep venous systems showing no evidence of thrombosis. Electronically signed by: Quirino Guardado MD 06/17/2020 8:47 AM CDT
--- NOTE | 2020-06-17 08:49 | US ---
EXAM DESCRIPTION: Venous,Lower Extremity LT (accession [id number]), Venous,Lower Extremity RT (accession [id number]): Ultrasound. CLINICAL HISTORY: PAIN. Bilateral lower extremities. COMPARISON: None Available. TECHNIQUE: Two -dimensional and doppler sonographic evaluation of the deep venous system of the bilateral lower extremities. FINDINGS: Doppler evaluation shows normal color flow and normal phasicity and augmentation of the bilateral common femoral veins, junctions with the bilateral proximal saphenous veins, femoral veins, popliteal veins, greater saphenous veins,, peroneal and posterior tibial veins. These veins showed normal occlusion with transducer pressure. Two-dimensional survey showed no echogenic clot within these veins. IMPRESSION: Duplex ultrasound evaluation of the bilateral lower extremity deep venous systems showing no evidence of thrombosis. Electronically signed by: Quirino Guardado MD 06/17/2020 8:47 AM CDT
== END ==
LOC: US 11:09
PROVIDERS: ATTEND Family Medicine
DX: M79.604 Pain in right leg (principal); M79.605 Pain in left leg